=== PATIENT | female | born 1955 | race Caucasian/White ===

== ENCOUNTER 2018-03-11 12:57 | Inpatient (IN) ==
[2018-03-11] MEDS ORDERED: Clindamycin 900 MG/50 ML 900 MG/50 ML IV.SOLN IVPB ONE (13:21)
[2018-03-11] MEDS ORDERED: Ringers Solution, Lactated 1,000 ML IVC SCH (13:30)
--- NOTE | 2018-03-11 13:55 | History & Physical Report ---
Date of Encounter: 03/11/18 Time of Encounter: 13:54 24 Hour HP Update - Instructions Instructions: If the History and Physical is less than 30 days old and was completed prior to A.M. admission and or procedure and has NOT been updated on calendar day of procedure please complete this update prior to performing procedure. - Update Patient reports changes in Medical Condition: No Changes in examination, assessment, or condition: No Changes in Medication: No Preop tests/diagnostics Reviewed: Yes Surgery Remains Indicated: Yes Consent for Planned Operative Procedure(s) Verified: Yes - Pre-Operative Checklist Preoperative Checklist Indicated: No Prophylactic Antibiotic Ordered: Yes Is VTE Prophylaxis Indicated?: Yes
--- NOTE | 2018-03-11 13:58 | Anesthesia Evaluation PreOp ---
Date of Encounter: 03/11/18 Time of Encounter: 13:50 - Past History Planned Operation: R hip arthroplasty Cardiac History: HTN, Hyperlipidemia Pulmonary History: Denies Any Significant HX [employer] History: Denies Any Significant HX Other Medical History: Thyroid, Other (obesity) Anesthesia History: No Prior Anesthetic Complications, Past Anesthesia Alcohol Use: none Drug use: none Medications and Allergies Acetaminophen [Tylenol] 1,000 mg PO TID PRN 08/26/17 [History] Amlodipine Besylate 10 mg PO DAILY 08/26/17 [History] Candesartan Cilexetil [Atacand] 32 mg PO DAILY 08/26/17 [History] Cetirizine HCl [24Hour Allergy] 10 mg PO DAILY 08/26/17 [History] Clindamycin [Cleocin] 150 mg PO Q6HR #14 capsule 08/26/17 [Rx] Duloxetine HCl [Cymbalta] 60 mg PO DAILY 08/26/17 [History] Ibuprofen [Motrin] 600 mg PO Q8HR #20 tab 08/26/17 [Rx] Levothyroxine [Synthroid] 50 mcg PO 0630 08/26/17 [History] Montelukast [Singulair] 10 mg PO HS 08/26/17 [History] OxyCODONE Immed Rel [Roxicodone 5 MG] 5 mg PO Q4HR PRN 5 Days #20 tablet 08/26/17 [Rx] Allergy/AdvReac Type Severity Reaction Status Date / Time celecoxib [From Celebrex] Allergy Swelling Unverified 08/26/17 07:44 of Lip/Tongue/Throat Penicillins Allergy Hives Unverified 08/26/17 07:44 prednisone Allergy Swelling Unverified 08/26/17 07:44 of Lip/Tongue/Throat - Meds/Allergy Pre-op Review Medications Reviewed: Yes Allergies Reviewed: Yes Beta Blockers on Current Med List: No Anesthesia Results - Labs Laboratory Tests 02/23/18 02/23/18 02/23/18 12:00 12:00 12:00 WBC 8.5 Hgb 13.3 Hct 39.8 Plt Count 303 PT 11.9 INR 1.1 APTT 33.5 Sodium 135 L Potassium 3.7 Chloride 100 Carbon Dioxide 24 BUN 13 Creatinine 0.60 - Imaging EKG: report reviewed (sinus rhythm, old ant. infarct) Anesthesia Exam Selected Entries 03/11/18 13:14 Temperature 98.6 F Respiratory Rate 18 Blood Pressure 159/91 O2 Sat by Pulse Oximetry 94 Weight: 95 kg BMI 37 NPO (# of Hours): over 8 hours - HEENT Pupil (Motor): Pupils equal Teeth: Edentulous Oral Opening: Greater than 3 - Cardiac Rhythm: Regular (tachycardic) Murmur: None - Pulmonary Breath Sounds: bilateral Clear Respiratory Effort: Symmetrical Anesthesia Assess/Plan ASA Score: 2 Level of consciousness: Cooperative Anesthetic Plan: General, Spinal Monitoring Plan: Standard Monitors Recovery Plan: PACU (Discussed SAB for post operative pain relief. Patient had total shoulder with interscalene nerve block so is familiar with the concept. Discussed risks and benefits. Agreed to proceed.)
[2018-03-11] MEDS ORDERED: Acetaminophen IV 1,000 MG/100 ML INFUS..BTL IVPB ONE (14:01)
[2018-03-11] MEDS ORDERED: Ethanol\\Acetic Acid\\Na Ace\\Ben 1,000 ML IRRIG.SOLN IR ONE (14:18)
[2018-03-11] MEDS ORDERED: *HR* Midazolam HCl 2 MG/2 ML VIAL ONE (14:23)
[2018-03-11] MEDS ORDERED: *HR* Propofol 200 MG/20 ML VIAL IVP ONE (14:23)
[2018-03-11] MEDS ORDERED: *HR* FentaNYL (PF) 100 MCG/2 ML VIAL ONE (14:23)
[2018-03-11] MEDS ORDERED: Acetaminophen IV 1,000 MG/100 ML INFUS..BTL ONE (14:26)
[2018-03-11] MEDS ORDERED: *HR* Morphine Sulfate/PF 10 MG/10 ML AMPUL ONE (14:26)
[2018-03-11] MEDS ORDERED: Propofol 500 MG/50 ML INFUS..BTL ONE (15:08)
[2018-03-11] MEDS ORDERED: Ondansetron 4 MG/2 ML VIAL ONE ×2 (15:24→15:25)
[2018-03-11] MEDS ORDERED: Dexamethasone 4 MG/ML VIAL ONE (15:25)
[2018-03-11] MEDS ORDERED: *HR* PHENYLEPHRINE 1,000 MCG/10 ML SYRINGE IVP ONE ×3 (15:29→16:12)
[2018-03-11] MEDS ORDERED: Tranexamic Acid 1,000 MG/10 ML VIAL ONE (15:31)
--- NOTE | 2018-03-11 15:55 | Anesthesia Procedures ---
Date of Encounter: 03/11/18 Time of Encounter: 15:00 Procedures: Anesthesia - Epidural/Spinal Patient ID/Chart reviewed: Yes Patient examined: Yes Consent Obtained: Yes Supplemental Oxygen: Nasal Cannula Supplemental Oxygen Rate (L/min): 2 Sedation: Versed (mg): 2 Sedation: Fentanyl (mcg): 100 Site Prep: Aseptic Technique, Sterile prep and drape, 0.5% Chlorhexidine/Alcohol Patient position: upright Local Anesthetic: other (lidocaine 2%) Amount of Local Anesthetic used: 3 Interspace Used: L2-L3 Blood: No CSF: Yes Paresthesia: No Spinal Needle Gauge: 22 ([id number]) Spinal Dose: 2mL 0.5% bupivacaine (PF), 200mcg duramorph Procedure: after +csf, spinal dosed, needle removed, patient assisted into supine position. Vitals + FHT's: Vital Signs/O2 Sat/Glucose, Most Recent Temp Pulse Resp BP Pulse Ox 98.6 F 111 16 149/75 99 03/11/18 13:14 03/11/18 15:11 03/11/18 15:11 03/11/18 15:11 03/11/18 15:11
[2018-03-11] MEDS ORDERED: *HR* HYDROmorphone 2 MG/ML SYRINGE IVP PRN (16:03)
[2018-03-11] MEDS ORDERED: *HR* OxyCODONE Immed Rel 5 MG TABLET PO PRN ×2 (16:03→17:28)
[2018-03-11] MEDS ORDERED: *HR* Promethazine 25 MG/ML VIAL IVP PRN (16:03)
--- NOTE | 2018-03-11 16:40 | Orthopedic Operative Note ---
Date of procedure: 03/11/18 Pre-op diagnosis: Right hip arthritis Post-op diagnosis: same Procedure: Procedure: right Total Hip Replacment robotic-assisted Estimated blood loss: 200 cc Hardware: Metal and polyethylene replacement. Carmita DM Cup: 52 cup Femoral size 7 stem Head: 8 head with Justina Procedural Notes: Grade 4 arthritic changes femoral head acetabular socket, procedure performed with robotic assistance. 16 mm short operative versus nonoperative is based on preoperative CT scan Operative procedure: The patient was brought to the operating room and placed on the operating room table. After general anesthesia was administered the patient was placed in the lateral decubitus position with the operative leg up. All pressure points were padded appropriately and the head was stabilized in the neutral position. The operative extremity was prepped and draped in the sterile surgical fashion patient received IV antibiotic prior to skin incision. 3 Steinmann pins were placed in the iliac crest 3 cm proximal to the anterior superior iliac spine this was for the robotic-assisted sensor. This was done through a small 2 cm incision. A standard posterior approach is made to the operative hip, the incision was made through the skin and subcutaneous tissue hemostasis was obtained with Bovie cautery. Using careful sharp dissection the fascia was identified and incised exposing the external rotators. The greater trochanter was marked, and length was measured at this time utilizing robotic assistance. The external rotators were released off the greater trochanter and tagged with #2 FiberWire suture. The capsule was T'd open and the hip was brought into internal rotation. Patient noted to have grade 4 arthritic changes femoral head. The femoral neck cut was made at the appropriate level roughly 15 mm proximal to the lesser trochanter aced on preoperative templating. An anterior capsulotomy was performed for the anterior retractor. Soft tissues removed from the acetabulum. Patient noted to have grade 4 arthritic changes acetabulum. The acetabulum reference point was confirmed. The acetabulum was then mapped with robotic assistance. Based on the preoperative plan the acetabulum was reamed in one step with a 51 reamer. The 5 2 acetabulum was impacted with robotic assistance and 44 degrees of abduction and 15 degrees of anteversion. The hip was brought back in to internal rotation and prepared with the box tender followed by the canal finder followed by the reaming process to a size 7/8 broaching process in 20 degrees anteversion. It was broached up to the appropriate size 7 Trial reduction revealed leg lengths close to normal. The femoral implant was impacted in place in 20 degrees of anteversion. Trial reduction found the hip to be stable with 8 head and Justina. The trials were removed and the real implants were impacted in place. The hip was reduced, patient had robotic confirmed leg length of 2 mm longer than the contralateral side. The hip had excellent stability with forward flexion to 90 degrees adduction of 30 degrees and internal rotation of 60 degrees. The hip had no shuck. The hip sat with an antibacterial solution. It was irrigated out with 2 L of pulse irrigation. The Steinmann pins were removed. The deep tissue was irrigated and closed deep with #1 PDS suture superficially with 0 PDS suture and skin was closed with Dermabond and zip tie. The patient was placed in a sterile dressing and abduction pillow. The patient was extubated and transferred to the recovery room in stable condition. Anesthesia: YAS Surgeon: Vishnu Yip Was there an corporate administrative assistant present: No Estimated blood loss (cc): 200 Condition: stable Disposition: PACU
[2018-03-11 17:05] LABS: Hematocrit 36.2 % (35.3-44.9); Hemoglobin 11.7 g/dL (11.5-15.4)
--- NOTE | 2018-03-11 17:16 | Anesthesia Evaluation Post Op ---
Date of Encounter: 03/11/18 Time of Encounter: 17:14 - Vital Signs Vital Signs: Vital Signs/O2 Sat, Most Current Temp Pulse Resp BP Pulse Ox 97.2 F L 68 18 113/66 95 03/11/18 17:07 03/11/18 17:07 03/11/18 17:07 03/11/18 17:07 03/11/18 17:07 - Lungs Lungs: Clear Ascult./Percussion - Airway Airway: Non-obstructed - Cardiovascular Regular Rate - Mental Status Mental Status: Alert & Oriented, Answers Appropriately - Pain Pain Scale: 0 Pain Scale used: Numeric (1 - 10) - Nausea Vomiting Nausea Vomiting: Not Present - Hydration Hydration: Tolerates oral liquids - Discharge PostOp Status: Transfer Patient to floor
[2018-03-11] MEDS ORDERED: Naloxone 0.4 MG/ML INJ IVP PRN (17:28)
[2018-03-11] MEDS ORDERED: Clindamycin 900 MG/50 ML 900 MG/50 ML IV.SOLN IVPB SCH (17:28)
[2018-03-11] MEDS ORDERED: traMADol 50 MG TABLET PO PRN (17:28)
[2018-03-11] MEDS ORDERED: Ondansetron 4 MG/2 ML VIAL IVP PRN (17:28)
[2018-03-11] MEDS ORDERED: Temazepam 15 MG CAPSULE PO PRN (17:28)
[2018-03-11] MEDS ORDERED: Sennosides 8.6 MG TABLET PO PRN (17:28)
[2018-03-11] MEDS ORDERED: MOM Conc 10 ML UD.LIQ PO PRN (17:28)
[2018-03-11] MEDS ORDERED: *HR* Enoxaparin 30 MG/0.3 ML SYRINGE SQ SCH (18:00)
[2018-03-11] MEDS: *HR* Enoxaparin 30 MG/0.3 ML SYRINGE SQ SCH (20:31)
[2018-03-11] MEDS: Ascorbic Acid 500 MG TABLET PO SCH (20:32)
[2018-03-11] MEDS: Ibuprofen 800 MG TABLET PO SCH (20:32)
[2018-03-11] MEDS ORDERED: Ibuprofen 200 MG TABLET PO SCH (21:00)
[2018-03-11] MEDS: Clindamycin 900 MG/50 ML 900 MG/50 ML IV.SOLN IVPB SCH (22:25)
[2018-03-12] MEDS: Ringers Solution, Lactated 1,000 ML IVC SCH ×2 (02:26→17:33)
[2018-03-12] MEDS: *HR* OxyCODONE/APAP 5/325 TABLET PO PRN ×3 (02:26→20:11)
[2018-03-12] MEDS: Clindamycin 900 MG/50 ML 900 MG/50 ML IV.SOLN IVPB SCH (05:20)
[2018-03-12] MEDS: *HR* Enoxaparin 30 MG/0.3 ML SYRINGE SQ SCH ×2 (05:21→17:33)
[2018-03-12 06:09] LABS: Hematocrit 37.1 % (35.3-44.9); Hemoglobin 11.7 g/dL (11.5-15.4)
[2018-03-12 06:35] LABS: Calcium 9.7 mg/dL (8.6-10.3); Potassium 4.5 mEq/L (3.5-5.1)
--- NOTE | 2018-03-12 06:46 | Orthopedics Progress Note ---
Date of Encounter: 03/12/18 Time of Encounter: 06:46 Subjective Interval history: Patient was seen this morning doing well without complaints. Afebrile vital signs stable. Operative extremity: Neurovascularly intact Dressing clean dry and intact Calves nontender Assessment and plan: Continue with postoperative care Hematocrit 37 Objective Vital signs: Vital Signs Temp Pulse Resp BP Pulse Ox 03/12/18 02:13 97.8 F 98 15 145/78 94 03/11/18 22:42 97.8 F 98 12 132/84 92 03/11/18 20:21 98.6 F 100 16 108/74 94 03/11/18 19:00 97.8 F 100 16 129/80 93 03/11/18 18:30 98.4 F 94 16 129/81 98 03/11/18 18:10 97.9 F 92 18 126/78 97 03/11/18 17:30 98.4 F 97 16 98/58 97 03/11/18 17:17 97.2 F L 78 14 120/71 95 03/11/18 17:07 97.2 F L 68 18 113/66 95 03/11/18 16:57 73 18 103/59 95 03/11/18 16:47 69 18 93/69 95 03/11/18 16:37 97.4 F L 69 16 99/54 96 03/11/18 15:11 111 16 149/75 99 03/11/18 15:03 112 18 163/99 96 03/11/18 14:49 111 18 181/94 96 03/11/18 13:14 98.6 F 111 18 159/91 94 Intake and Output 03/11/18 03/11/18 03/12/18 15:59 23:59 07:59 Intake Total 50 / 50 50 / 50 800 / 800 Output Total 200 / 200 110 / 110 Balance 50 / 50 -150 / -150 690 / 690 Intake: IV Fluids 50 / 50 50 / 50 Cleocin Premix 900 MG/50 ML 900 50 / 50 50 / 50 mg In 50 ml @ 50 mls/hr IVPB Q8H [facility] Rx#:[id number] Oral 800 / 800 Output: Urine 110 / 110 Estimated Blood Loss 200 / 200 Other: # Voids 1 1 Weight 95.708 kg 105.2 kg - Labs CBC & BMP: 03/12/18 05:46 03/12/18 05:46 Labs: Abnormal lab results Sodium 135 mEq/L (136-145) L 03/12/18 05:46 Est GFR (Non-Af Amer) 49 (> 60) L 03/12/18 05:46 Glucose 256 mg/dL (70-105) H 03/12/18 05:46 Consult Discharge Plan - Plan Referrals: Ghulam Hernandez DO [Primary Care Provider] -
[2018-03-12] MEDS: amLODIPine 5 MG TABLET PO SCH (08:01)
[2018-03-12] MEDS: Loratadine 10 MG TABLET PO SCH (08:01)
[2018-03-12] MEDS: Ibuprofen 800 MG TABLET PO SCH ×2 (08:03→17:32)
[2018-03-12] MEDS: hydroCHLOROthiazide 25 MG TABLET PO SCH (08:03)
[2018-03-12] MEDS: Multivit/Ca/Min/Fe/FA 1 TAB TABLET PO SCH (08:04)
[2018-03-12] MEDS: Ascorbic Acid 500 MG TABLET PO SCH ×2 (08:04→17:32)
--- NOTE | 2018-03-12 10:52 | Discharge Summary ---
Orders not resulted at time of discharge: Pending orders 03/13/18 04:00 Basic Metabolic Panel AM 0400 Hemoglobin and Hematocrit [HEME] AM 0400 Date of Encounter: 03/13/18 Time of Encounter: 09:58 - Discharge Diagnosis (1) Status post total hip replacement, right Priority: Primary Status: Acute Comments: Opsite dressing, leave intact until first post-operative visit. If dressing becomes >50% saturated, contact office, remove dressing and place appropriate dressing in its place. Do not allow for dressing to get wet. Zipline/Flatgap in place, plan to remove at post-operative day #14-16. Total Joint Precautions x 6 weeks Apply cold therapy wrap 3-6x/day for 20 minutes at a time. Encourage ambulation throughout the day Use Incentive spirometer 10x/hour. Elevate affected extremity above heart as tolerated. Brace: Wear hip abductor brace at night x 6 weeks. (2) Arthritis of right hip Priority: Primary Status: Acute (3) Obesity Priority: Secondary Status: Chronic Qualifiers: Obesity type: due to excess calories Obesity classification: adult class 1 (BMI 30 - 34.9) Serious obesity comorbidity presence: without serious comorbidity Body mass index: BMI 34.0-34.9 Qualified Code(s): E66.09 - Other obesity due to excess calories; Z68.34 - Body mass index (BMI) 34.0-34.9, adult (4) HTN (hypertension) Priority: Secondary Status: Chronic Qualifiers: Hypertension type: essential hypertension Qualified Code(s): I10 - Essential (primary) hypertension (5) HLD (hyperlipidemia) Priority: Secondary Status: Chronic Qualifiers: Hyperlipidemia type: mixed hyperlipidemia Qualified Code(s): E78.2 - Mixed hyperlipidemia (6) Hypothyroid Priority: Secondary Status: Chronic Qualifiers: Hypothyroidism type: unspecified Qualified Code(s): E03.9 - Hypothyroidism, unspecified - Hospital Course Hospital course: Ms. Lauren is a 63 year old female, status post Total Hip replacement She was seen 03/13 by tammie Eldridge for D/C. Per his note: S: Patient is seen today and has no complaints. O: Afebrile and vital signs are stable Operative extremity dressing is clean, dry, and intact. Neurovascularly intact distally A: Post right hip arthroplasty P: Resume postoperative care Discharged today Discharged on 03/13 with Home Health Laboratory Results - last 72 hr 03/13/18 03/13/18 05:50 05:50 Hgb 11.1 L Hct 33.7 L Sodium 133 L Potassium 3.5 Chloride 100 Carbon Dioxide 25 BUN 17 Creatinine 0.69 Est GFR ( Amer) > 60 Est GFR (Non-Af Amer) > 60 BUN/Creatinine Ratio 25 Glucose 271 H Calculated Osmolality 287 Calcium 9.6 Vital Signs (72 hours) 03/12/18 10:49 03/12/18 20:06 03/12/18 21:23 Temperature 98.6 F 98.0 F Pulse Rate 98 96 101 Respiratory Rate 18 16 Blood Pressure 143/71 172/74 130/76 O2 Sat by Pulse Oximetry 93 92 03/12/18 23:36 03/13/18 03:40 03/13/18 07:05 Temperature 98.5 F 98.2 F 98.4 F Pulse Rate 102 96 98 Respiratory Rate 16 16 16 Blood Pressure 148/79 135/74 141/81 O2 Sat by Pulse Oximetry 91 91 98 03/13/18 11:23 Temperature 98.4 F Pulse Rate 98 Respiratory Rate 15 Blood Pressure 113/71 O2 Sat by Pulse Oximetry 95 - Time Spent with Patient Total time spent providing and/or coordinating discharge services: - Discharge Medications Prescriptions: OxyCODONE Immed Rel [Roxicodone 5 MG] 5 mg PO Q6HR PRN 5 Days #20 tablet PRN Reason: Pain Aspirin Enteric Coated [Aspirin EC] 325 mg PO BID #20 tablet. Home Medications: Cetirizine HCl [24Hour Allergy] 10 mg PO DAILY 08/26/17 [History] Duloxetine HCl [Cymbalta] 60 mg PO HS 08/26/17 [History] Montelukast [Singulair] 10 mg PO DAILY 08/26/17 [History] Amlodipine Besylate 10 mg PO DAILY 03/11/18 [History] Aspirin Enteric Coated [Aspirin EC] 325 mg PO BID #20 tablet. 03/11/18 [Rx] Candesartan/Hydrochlorothiazid [Atacand Hct 32-12.5 mg Tab] 1 each PO DAILY 03/11/18 [History] Diphenhydramine HCl [Diphen] 25 mg PO BID 03/11/18 [History] Ibuprofen [Ibu-200] 200 mg PO BID 03/11/18 [History] Ibuprofen [Motrin] 600 mg PO BID 03/11/18 [History] OxyCODONE Immed Rel [Roxicodone 5 MG] 5 mg PO Q6HR PRN 5 Days #20 tablet 03/11/18 [Rx] Aspirin Enteric Coated [Aspirin EC] 325 mg PO BID #20 tablet. 03/12/18 [Rx] OxyCODONE Immed Rel [Roxicodone 5 MG] 5 mg PO Q6HR PRN 5 Days #20 tablet 03/12/18 [Rx] Allergies/Adverse Reactions: Allergy/AdvReac Type Severity Reaction Status Date / Time celecoxib [From Celebrex] Allergy Swelling Verified 03/11/18 20:23 of Lip/Tongue/Throat Penicillins Allergy Hives Verified 03/11/18 20:23 prednisone Allergy Swelling Verified 03/11/18 20:23 of Lip/Tongue/Throat Date of admission: 03/11/18 18:12 Primary care physician: Ghulam Hernandez DO Consults: 03/11/18 17:28 Consult to Nurse Navigator [CONS] Routine Comment: ortho navigator Consult to Occupational Therapy [CONS] Routine Comment: Evaluate, develop and implement POC Reason for Consult: total hip replacement Does patient have active BEDREST order?: No Is patient medically & hemodynamically stable?: Yes Consult to Physical Therapy [CONS] Routine Comment: Evaluate, develop and implement POC Reason for Consult: total hip replacement Does patient have active BEDREST order?: No Is patient medically & hemodynamically stable?: Yes Consult to Manager Intelligence [CONS] Routine Reason for Consult: post op joint replacement RT Post Op Consult [CONS] Routine 03/11/18 18:37 Consult to Manager Intelligence [CONS] Routine Reason for Consult: therapy after discharge Anticipated date of discharge: 03/13/18 Labs on day of discharge: Labs from last 24 hours 03/12/18 03/12/18 03/11/18 05:46 05:46 16:50 Hgb 11.7 11.7 Hct 37.1 36.2 Sodium 135 L Potassium 4.5 Chloride 100 Carbon Dioxide 25 BUN 22 Creatinine 1.11 Est GFR ( Amer) 60 Est GFR (Non-Af Amer) 49 L BUN/Creatinine Ratio 20 Glucose 256 H Calculated Osmolality 292 Calcium 9.7 - Impressions ITS Impressions Hip X-Ray 03/11/18 13:58 IMPRESSION: Right hip arthroplasty. Hardware appears intact. Unremarkable postop study. D/ / Stephan Brewer MD / Stephan Brewer MD Interpreting Provider: Stephan Brewer MD - Patient Status Disposition: Home Health Service Condition: Good Functional capacity at discharge: uses cane/walker Overall status at discharge: patient is progressing back to baseline - Discharge Instructions Follow Up With: Ghulam Hernandez DO [Primary Care Provider] - Additional Instructions: Discharge Instructions: Total Hip Replacement Please call [facility] ([phone]), your Primary Care Physician, or report to the Emergency Room if you have any of the following symptoms: Nausea, vomiting, fever greater that 101.5, swelling, chest pain, shortness of breath, increased pain/redness/drainage/odor for your incision site, numbness/tingling, or any other concerning symptoms. ACTIVITY:Weight-bearing as tolerated for 8 weeks with hip dislocation precautions that physical therapy taught you. You may progress as tolerated under the guidance of your physical therapist. You do not need to sleep with a pillow between your legs. You can also seep on the operative side or on your stomach. Incentive Spirometer 10 times an hour. MEDICATIONS: Upon discharge resume your home medications. Take all the medications as prescribed. Take a stool softener if taking narcotic pain medications. Stool softeners are only effective if you drink enough fluids. Drink 6-8 glass of water or fluids a day, unless this is not allowed for another health problem. Despite using stool softeners, if you haven't had a bowel movement in 3 days, please switch to a gentle laxative. Gentle laxatives are sold over the counter. You should have a bowel movement within 24 hours, if not call the office. You will be discharged from the hospital with a prescription for pain medication. You are encouraged to decrease the use of narcotic pain medication as tolerated. Should you require a refill, please call the office. [facility] prescribes narcotic pain medication for only 4-6 weeks after surgery. If you require pain medication beyond this time period, you may be referred to your Primary Care Physician or to the Pain Clinic for further evaluation. Plan ahead for refills on pain medication as many narcotics either need to be pi cked up at the office or mailed. It is best to call 48-72 hours in advance of needing a prescription refill so you don't run out of medication. To help control the post-operative pain, you may take NSAIDs (Aleve,Advil, Motrin, ibuprofen, naprosyn) or Tylenol as prescribed on the bottle in addition to the pain medication. ANTICOAGULATION (blood thinners): Continue your Aspirin, Lovenox or Coumadin as prescribed to help prevent a blood clot in the leg or in the lungs. As long as your incision remains dry and you tolerate the NSAIDs (Aleve, Advil, Motrin, Ibuprofen, Naprosyn), it is OK to use the NSAIDS while you are taking your anticoagulation medication. Should your incision start to drain, stop the NSAID and contact our office. Common symptoms of blood clot in the legs include: localized pain, swelling, calf tenderness, redness or discoloration of the skin. Blood clot in the lung symptoms include: shortness of breath, rapid pulse, sweating, and chest pain that worsens with deep breathing, coughing up blood, lightheadedness, feelings of anxiety. If you experience any of these symptoms notify your physician immediately, go to the emergency room, or if having trouble breathing, call 911. WOUND CARE: Leave the dressing on for 7 to 10days. You may change the dressing if it is saturated greater than 50%. Do not get the dressing wet at anytime. Wash your hands with antibacterial soap, rinse and dry prior to any wound care. If you have anya the visiting nurse or rehab facility can remove the stapes 10-14 days after surgery and place steri-strips across the wound. Leave the steri-strips in place until they fall off on their own. You may let water from the shower run on top of the steri-strips. If you do not have a visiting nurse or rehab facility, you will need to return to the office at 10-14 days for the anya to be removed. If you have itching or redness around the dressing call the office. FOLLOW-UP: Please follow up with your surgeon in the orthopedic clinic in 6 weeks from the day of surgery. If you have anya that need to be removed, you will need to come back to the office in 10-14 days from the day of surgery.
--- NOTE | 2018-03-12 10:55 | Physician Discharge Referral ---
Home Health/Hosp Referral Info Transfer to: Home Health Attending Provider: Provider in Charge Post Discharge: PCP - Diagnosis (1) Status post total hip replacement, right Priority: Primary Status: Acute (2) Arthritis of right hip Priority: Primary Status: Acute (3) Obesity Priority: Secondary Status: Chronic (4) HTN (hypertension) Priority: Secondary Status: Chronic (5) HLD (hyperlipidemia) Priority: Secondary Status: Chronic (6) Hypothyroid Priority: Secondary Status: Chronic - Respiratory Orders None Smoking Cessation: Smoking cessation has been advised. For more information, call the [place] Tobacco Quit Line at 0-561-YHIB-NOW. - Diet/Nutrition Diet/Nutrition Orders: Regular - Activity Activity Orders: Ambulate, Walker - Services Needed Following services are medically necessary services: Nursing, Home Health Aide, Physical Therapy, Occupational Therapy Home Care Orders: Opsite dressing, leave intact until first post-operative visit. If dressing becomes >50% saturated, contact office, remove dressing and place appropriate dressing in its place. Do not allow for dressing to get wet. Zipline/[place] in place, plan to remove at post-operative day #14-16. Total Joint Precautions x 6 weeks Apply cold therapy wrap 3-6x/day for 20 minutes at a time. Encourage ambulation throughout the day Use Incentive spirometer 10x/hour. Elevate affected extremity above heart as tolerated. Brace: Wear hip abductor brace at night x 6 weeks. - Transfer Medications Prescriptions: OxyCODONE Immed Rel [Roxicodone 5 MG] 5 mg PO Q6HR PRN 5 Days #20 tablet PRN Reason: Pain Aspirin Enteric Coated [Aspirin EC] 325 mg PO BID #20 tablet. Home Medications: Cetirizine HCl [24Hour Allergy] 10 mg PO DAILY 08/26/17 [History] Duloxetine HCl [Cymbalta] 60 mg PO HS 08/26/17 [History] Montelukast [Singulair] 10 mg PO DAILY 08/26/17 [History] Amlodipine Besylate 10 mg PO DAILY 03/11/18 [History] Aspirin Enteric Coated [Aspirin EC] 325 mg PO BID #20 tablet. 03/11/18 [Rx] Candesartan/Hydrochlorothiazid [Atacand Hct 32-12.5 mg Tab] 1 each PO DAILY 03/11/18 [History] Diphenhydramine HCl [Diphen] 25 mg PO BID 03/11/18 [History] Ibuprofen [Ibu-200] 200 mg PO BID 03/11/18 [History] Ibuprofen [Motrin] 600 mg PO BID 03/11/18 [History] OxyCODONE Immed Rel [Roxicodone 5 MG] 5 mg PO Q6HR PRN 5 Days #20 tablet 03/11/18 [Rx] Aspirin Enteric Coated [Aspirin EC] 325 mg PO BID #20 tablet. 03/12/18 [Rx] OxyCODONE Immed Rel [Roxicodone 5 MG] 5 mg PO Q6HR PRN 5 Days #20 tablet 03/12/18 [Rx] Allergies/Adverse Reactions: Allergy/AdvReac Type Severity Reaction Status Date / Time celecoxib [From Celebrex] Allergy Swelling Verified 03/11/18 20:23 of Lip/Tongue/Throat Penicillins Allergy Hives Verified 03/11/18 20:23 prednisone Allergy Swelling Verified 03/11/18 20:23 of Lip/Tongue/Throat Certification: Further, I certify that my clinical findings support that this patient is homeb ound (i.e. absences from home require considerable and taxing effort and are for medical reasons or latter day services or infrequently or short duration when for other reasons) because: Homebound Reason: Post-surgery restriction and or conditions limit ability to leave home Attestation: My signature below is to certify that this patient is under my care and that I, or nurse practitioner, or a physician's assistant professor of psychology working with me, has a [id number] encounter with this patient.
[2018-03-13] MEDS: *HR* Enoxaparin 30 MG/0.3 ML SYRINGE SQ SCH (05:52)
[2018-03-13 06:35] LABS: Hematocrit 33.7 % (35.3-44.9); Hemoglobin 11.1 g/dL (11.5-15.4)
[2018-03-13 06:37] LABS: BUN/Creatinine Ratio 25 (6-26); Blood Urea Nitrogen 17 mg/dL (8-23); Calcium 9.6 mg/dL (8.6-10.3); Carbon Dioxide 25 mEq/L (23-29); Chloride 100 mEq/L (98-107); Glucose 271 mg/dL (70-105); Osmolality,Calculated 287 (280-300); Potassium 3.5 mEq/L (3.5-5.1); Sodium 133 mEq/L (136-145); eGFR For Non-African Americans > 60 (> 60)
[2018-03-13] MEDS: hydroCHLOROthiazide 25 MG TABLET PO SCH (08:24)
[2018-03-13] MEDS: *HR* OxyCODONE/APAP 5/325 TABLET PO PRN ×2 (08:24→12:45)
[2018-03-13] MEDS: amLODIPine 5 MG TABLET PO SCH (08:24)
[2018-03-13] MEDS: Loratadine 10 MG TABLET PO SCH (08:25)
[2018-03-13] MEDS: Ascorbic Acid 500 MG TABLET PO SCH (08:25)
[2018-03-13] MEDS: Multivit/Ca/Min/Fe/FA 1 TAB TABLET PO SCH (08:25)
[2018-03-13] MEDS: Ibuprofen 800 MG TABLET PO SCH (08:25)
[2018-03-13 11:24] VITALS: BP 113/71
--- NOTE | 2018-03-13 12:06 | Orthopedics Progress Note ---
Date of Encounter: 03/13/18 Time of Encounter: 12:06 Subjective Interval history: S: Patient is seen today and has no complaints. O: Afebrile and vital signs are stable Operative extremity dressing is clean, dry, and intact. Neurovascularly intact distally A: Post right hip arthroplasty P: Resume postoperative care Discharged today Objective Vital signs: Vital Signs Temp Pulse Resp BP Pulse Ox 03/13/18 11:23 98.4 F 98 15 113/71 95 03/13/18 07:05 98.4 F 98 16 141/81 98 03/13/18 03:40 98.2 F 96 16 135/74 91 03/12/18 23:36 98.5 F 102 16 148/79 91 03/12/18 21:23 101 130/76 03/12/18 20:06 98.0 F 96 16 172/74 92 Intake and Output 03/12/18 03/13/18 03/13/18 23:59 07:59 15:59 Intake Total 240 / 240 Output Total 400 / 400 300 / 300 Balance -400 / -400 -60 / -60 Intake: Oral 240 / 240 Output: Urine 400 / 400 300 / 300 Other: Meal Breakfast Percent of Meal Consumed 80% # Voids 1 1 - Labs CBC & BMP: 03/13/18 05:50 03/13/18 05:50 Labs: Abnormal lab results Hgb 11.1 g/dL (11.5-15.4) L 03/13/18 05:50 Hct 33.7 % (35.3-44.9) L 03/13/18 05:50 Sodium 133 mEq/L (136-145) L 03/13/18 05:50 Glucose 271 mg/dL (70-105) H 03/13/18 05:50 Consult Discharge Plan - Plan Additional Instructions: Discharge Instructions: Total Hip Replacement Please call [facility] ([phone]), your Primary Care Physician, or report to the Emergency Room if you have any of the following symptoms: Nausea, vomiting, fever greater that 101.5, swelling, chest pain, shortness of breath, increased pain/redness/drainage/odor for your incision site, numbness/tingling, or any other concerning symptoms. ACTIVITY:Weight-bearing as tolerated for 8 weeks with hip dislocation precautions that physical therapy taught you. You may progress as tolerated under the guidance of your physical therapist. You do not need to sleep with a pillow between your legs. You can also seep on the operative side or on your stomach. Incentive Spirometer 10 times an hour. MEDICATIONS: Upon discharge resume your home medications. Take all the medications as prescribed. Take a stool softener if taking narcotic pain medications. Stool softeners are only effective if you drink enough fluids. Drink 6-8 glass of water or fluids a day, unless this is not allowed for another health problem. Despite using stool softeners, if you haven't had a bowel movement in 3 days, please switch to a gentle laxative. Gentle laxatives are sold over the counter. You should have a bowel movement within 24 hours, if not call the office. You will be discharged from the hospital with a prescription for pain medication. You are encouraged to decrease the use of narcotic pain medication as tolerated. Should you require a refill, please call the office. [facility] prescribes narcotic pain medication for only 4-6 weeks after surgery. If you require pain medication beyond this time period, you may be referred to your Primary Care Physician or to the Pain Clinic for further evaluation. Plan ahead for refills on pain medication as many narcotics either need to be pi cked up at the office or mailed. It is best to call 48-72 hours in advance of needing a prescription refill so you don't run out of medication. To help control the post-operative pain, you may take NSAIDs (Aleve,Advil, Motrin, ibuprofen, naprosyn) or Tylenol as prescribed on the bottle in addition to the pain medication. ANTICOAGULATION (blood thinners): Continue your Aspirin, Lovenox or Coumadin as prescribed to help prevent a blood clot in the leg or in the lungs. As long as your incision remains dry and you tolerate the NSAIDs (Aleve, Advil, Motrin, Ibuprofen, Naprosyn), it is OK to use the NSAIDS while you are taking your anticoagulation medication. Should your incision start to drain, stop the NSAID and contact our office. Common symptoms of blood clot in the legs include: localized pain, swelling, yaritza f tenderness, redness or discoloration of the skin. Blood clot in the lung symptoms include: shortness of breath, rapid pulse, sweating, and chest pain that worsens with deep breathing, coughing up blood, lightheadedness, feelings of anxiety. If you experience any of these symptoms notify your physician immediately, go to the emergency room, or if having trouble breathing, call 911. WOUND CARE: Leave the dressing on for 7 to 10days. You may change the dressing if it is saturated greater than 50%. Do not get the dressing wet at anytime. Wash your hands with antibacterial soap, rinse and dry prior to any wound care. If you have anya the visiting nurse or rehab facility can remove the stapes 10-14 days after surgery and place steri-strips across the wound. Leave the steri-strips in place until they fall off on their own. You may let water from the shower run on top of the steri-strips. If you do not have a visiting nurse or rehab facility, you will need to return to the office at 10-14 days for the anya to be removed. If you have itching or redness around the dressing call the office. FOLLOW-UP: Please follow up with your surgeon in the orthopedic clinic in 6 weeks from the day of surgery. If you have anya that need to be removed, you will need to come back to the office in 10-14 days from the day of surgery. Referrals: Ghulam Hernandez DO [Primary Care Provider] - Prescriptions: Aspirin Enteric Coated [Aspirin EC] 325 mg PO BID #20 tablet.dr Butts Immed Rel [Roxicodone 5 MG] 5 mg PO Q6HR PRN 5 Days #20 tablet PRN Reason: Pain
== END 2018-03-13 13:20 | disposition home health service (06) | DRG 470 ==
LOC: SAMDAY 12:57 → 3NENU 18:12
PROVIDERS: ADMIT Orthopaedic Surgery; ATTEND Orthopaedic Surgery

== ENCOUNTER 2018-10-13 05:15 | Inpatient (IN) ==
[2018-10-13] MEDS ORDERED: *HR* OxyCODONE/APAP 7.5/325 TABLET PO ONE (06:04)
[2018-10-13] MEDS ORDERED: Ibuprofen 600 MG TABLET PO ONE (06:04)
[2018-10-13] MEDS ORDERED: 0.9 % Sodium Chloride 1,000 ML IVC ONE ×2 (06:37→06:56)
--- NOTE | 2018-10-13 06:56 | Emergency Department Note ---
Disposition Clinical Impression: Hyperglycemia, Joint pain Disposition: Still a Patient Referrals: Ghulam Hernandez DO [Primary Care Provider] - Time of Disposition: 06:56 General Adult HPI - General Chief complaint: ED Extremity Injury, Upper Stated complaint: Leg/Hip/Shoulder Pain, malaise Time Seen by Provider: 10/13/18 05:26 Source: patient, family Limitations: no limitations Nursing Notes Reviewed: Yes Vital Signs Reviewed: Yes - History of Present Illness Pain Scale: 8 - Related Data Home Medications Medication Instructions Recorded Confirmed Cetirizine HCl [24Hour Allergy] 10 mg PO DAILY 08/26/17 10/13/18 Duloxetine HCl [Cymbalta] 60 mg PO HS 08/26/17 10/13/18 Montelukast [Singulair] 10 mg PO DAILY 08/26/17 10/13/18 Amlodipine Besylate 10 mg PO DAILY 03/11/18 10/13/18 Candesartan/Hydrochlorothiazid 1 each PO DAILY 03/11/18 10/13/18 [Atacand Hct 32-12.5 mg Tab] Ibuprofen [Motrin] 400 mg PO BID PRN 03/11/18 10/13/18 metFORMIN [Glucophage] 500 mg PO BIDWM 10/13/18 10/13/18 Allergies Allergy/AdvReac Type Severity Reaction Status Date / Time celecoxib [From Celebrex] Allergy Swelling Verified 10/13/18 05:47 of Lip/Tongue/Throat Penicillins Allergy Hives Verified 10/13/18 05:47 prednisone Allergy Swelling Verified 10/13/18 05:47 of Lip/Tongue/Throat Past Medical History - Past Medical History Medical history: Reports: cancer, diabetes, thyroid disease Surgical history: Reports: hysterectomy Psychiatric history: Reports: no psych history - Social History Smoking Status: Never smoker Smokeless Tobacco Status: No Alcohol use: Reports: none Drug use: Reports: none Physical Exam - General Limitations: no limitations General appearance: alert Course Vital Signs Temperature 98.2 F 10/13/18 05:20 Pulse Rate 124 10/13/18 05:20 Respiratory Rate 20 10/13/18 05:20 Blood Pressure 140/82 10/13/18 05:20 O2 Sat by Pulse Oximetry 98 10/13/18 05:20 Temperature 98.2 F 10/13/18 05:55 Pulse Rate 119 10/13/18 05:55 Respiratory Rate 20 10/13/18 05:55 Blood Pressure 140/82 10/13/18 05:55 O2 Sat by Pulse Oximetry 97 10/13/18 05:55 Oxygen Delivery Oxygen Delivery Room Air Attestation Statement - Attestation Attestation: I have seen this patient with the resident physician, I have personally evaluated this patient. I had reviewed the chart and document dictation by the resident physician and aM in agreement with the information documented by the resident physician. Please see documentation by the resident physician for complete chart including past medical history, family medical history, review of systems, current history and physical and laboratory and imaging studies. I was present for all procedures, provided direct supervision for all procedures, was present for the entirety of all procedures and provided direct guidance during the procedures. Please see documentation by the resident physician for any procedures performed. I have reviewed all interpretations of EKGs, and reviewed all EKGs performed on patient's as well. I have also reviewed reports of imaging as provided by radiology. Patient presented emergency department with her , for acute on chronic joint pains. She has been seen multiple times over last several months by her orthopedic surgeon for joint pain, and multiple different locations, she has had prior shoulder replacements her shoulder replacement side hurts but are all other shoulder hurts more now. She also has chronic hip pain which is worse. She has knee pain. She also states that she just could not sleep last night. The states that they were recently seen by their primary care doctor within the last 1-2 weeks for new onset diabetes, she was started on metformin but reports that her blood sugar was 600 in the office but reports that her blood sugar was 250 the last she checked it yesterday. The patient has been taking metformin. She states that she also just feels weak and rundown. The endorses that she has been urinating constantly, the patient and cannot tell me exactly when this started but he thinks it is worse today. He came in with her because she was having so much pain that she could not even get up and go to the bathroom without worsening pain in her joints. No reported fevers but she states she had chills all day yesterday. She denies headache or neck pain. She has chronic dry mouth which is no different. She denies cough sputum production shortness of breath or abdominal pain. She denies any rashes. The notes that she had a small raised red area on her right anterior thigh which she was treated with Neosporin and it seems to be better. On physical examination she is alert awake and talking, she definitely has dry mouth, with tachycardia and sticky appearing oral pharyngeal membranes. Cranial nerves are otherwise intact. Normal strength and sensation in all 4 extremities. She does have pain with range of motion of her bilateral shoulders but no warmth erythema swelling or obvious joint effusion over all major joints of bilateral upper and lower extremities. She also complains of some pain with palpation of the bilateral hips, but again I cannot localize any clinical abnormality. On the right anterior thigh there is an area that appeared to have been a plugged tear follicle, now appears to be a slightly scabbed over area that and probably previously drained, there is no redness no warmth or induration. There is some dry skin associated with this. Cardiovascular tachycardic, regular rhythm, no murmurs rubs or gallops. Abdomen soft and nontender. Lungs are clear. A fingerstick was checked and was 519, she was noted to be tachycardic and EKG was performed which showed sinus tachycardia heart rate of 111 no evidence of acute ischemic dysrhythmia hyperkalemia or abnormal intervals, compared to prior EKG from 04/17/2009 there is no acute change apart from increased rate. Secondary to her reporting malaise and urinary frequency and with a blood sugar 519, laboratory studies were ordered. She had an IV placed she was given a liter of IV fluids. She was ordered oral pain medication for her joint pains. At the time of this dictation, workup including all laboratory studies apart from the fingerstick was pending, I have asked that my colleague follow-up on all laboratory studies, if this is isolated hyperglycemia, consider hydration and discharged home with follow-up, however if there is any concerning findings on laboratory studies consideration of admission at that time. The patient signed out at 0700.
[2018-10-13 07:31] LABS: VBG HCO3 11 mEq/L (21-27); VBG PCO2 22 mmHg (41-51); VBG PH 7.32 pH Units (7.32-7.42); VBG PO2 125 mmHg (25-50)
[2018-10-13 07:45] LABS: Hematocrit 37.3 % (35.3-44.9); Hemoglobin 12.2 g/dL (11.5-15.4); Mean Corpuscular HGB Conc 32.7 g/dL (31.6-35.5); Mean Corpuscular Hemoglobin 28.7 pg (28.0-33.3); Mean Corpuscular Volume 87.8 fL (83.0-100.0); Mean Platelet Volume 11.1 fL (9.4-12.4); Platelet Count 175 K/mcL (140-400); Red Blood Count 4.25 M/mcL (3.82-4.97); Red Cell Distribution Width 14.9 % (11.5-14.5); White Blood Count 10.1 K/mcL (4.3-11.1)
--- NOTE | 2018-10-13 07:51 | Emergency Department Note ---
Disposition Clinical Impression: Diabetic ketoacidosis Joint pain Qualifiers: Joint pain location: unspecified Qualified Code(s): M25.50 - Pain in unspecified joint Disposition: Admitted As Inpatient Condition: Fair Time of Disposition: 07:10 General Adult HPI - General Chief complaint: ED Extremity Injury, Upper Stated complaint: Leg/Hip/Shoulder Pain, malaise Time Seen by Provider: 10/13/18 05:26 Source: patient, family () Mode of arrival: private vehicle Limitations: no limitations Nursing Notes Reviewed: Yes Vital Signs Reviewed: Yes - History of Present Illness HPI Narrative: 63-year-old female recent diagnosis of diabetes presents emergency department with multiple complaints. States over the past several months up to 3 months she has been having worsening pain to bilateral shoulders and hip. Denies any new injury or trauma. She has a history of right shoulder replacement over a ye ar ago. Dr. Yip is her orthopedic surgeon and states she is been evaluated by him in the past 3 months but he did not prescribe her any pain medication. She then went to her primary care provider who also did not area since then she has been taking ibuprofen and Tylenol with minimal relief. She denies any chest pain or shortness of breath. She recently was started on metformin. Unsure what her blood sugar levels have been running. Denies any fever. Limited range of motion secondary to pain. Pain Scale: 8 - Related Data Home Medications Medication Instructions Recorded Confirmed Cetirizine HCl [24Hour Allergy] 10 mg PO DAILY 08/26/17 10/13/18 Montelukast [Singulair] 10 mg PO DAILY 08/26/17 10/13/18 Candesartan/Hydrochlorothiazid 1 tab PO DAILY 03/11/18 10/13/18 [Atacand Hct 32-12.5 mg Tab] Amlodipine Besylate 10 mg PO DAILY 10/13/18 10/13/18 Previous Rx's Medication Instructions Recorded Alcohol Antiseptic Pads [Alcohol 1 each ACHS #100 med..pad 10/18/18 Pads] Blood-Glucose Meter, Drum-Type 1 each ACHS #1 kit 10/18/18 [Accu-Chek] Cefdinir [Omnicef] 300 mg PO BID 9 Days #18 capsule 10/18/18 Ferrous Sulfate 325 mg PO DAILY@0800 #14 tablet 10/18/18 Insulin DETEMIR [Levemir Flextouch] 35 unit SQ HS #1 pack 10/18/18 Insulin LISPRO [Humalog Jadon 0 unit SQ ACHS #5 ins.pen.hf 10/18/18 Kwikpen] Lactobacillus [Culturelle] 2 each PO DAILY 10 Days #20 10/18/18 cap.sprink Lancets/Blood Glucose Strips [Fora 1 each [facility] #1 combo..pkg 10/18/18 [id number] Strp-Lnct] Pen Needle, Diabetic, Safety 1 each [facility] #100 dis.needle 10/18/18 [Assure Id Pen Needle] Vancomycin Oral Soln [Firvanq] 125 mg PO QID 8 Days #32 udc 10/18/18 Allergies Allergy/AdvReac Type Severity Reaction Status Date / Time celecoxib [From Celebrex] Allergy Swelling Verified 10/13/18 21:17 of Lip/Tongue/Throat Penicillins Allergy Hives Verified 10/13/18 21:17 prednisone Allergy Swelling Verified 10/13/18 21:17 of Lip/Tongue/Throat duloxetine [From Cymbalta] AdvReac Severe Hallucinati Verified 10/15/18 20:30 ng All systems ED: reviewed and negative except as stated. Review of Systems: As Per HPI Constitutional: Denies: fever, chills ENT ED: Denies: congestion Cardiovascular: Denies: chest pain Respiratory: Denies: dyspnea Gastrointestinal: Denies: abdominal pain, nausea, vomiting Musculoskeletal: Reports: as per HPI Integumentary: Denies: rash Past Medical History - Past Medical History Attestation: Yes The following information was validated with the patient. Source: patient Medical history: Reports: cancer, diabetes, thyroid disease Surgical history: Reports: hysterectomy Psychiatric history: Reports: no psych history - Social History Smoking Status: Never smoker Smokeless Tobacco Status: No Alcohol use: Reports: none Drug use: Reports: none Physical Exam - General Limitations: no limitations General appearance: alert, in distress (Uncomfortable secondary to pain) - Head Head exam: atraumatic, normocephalic, normal inspection - Eye Eye exam: Present: normal appearance, EOMI - ENT ENT exam: normal exam, normal oropharynx, mucous membranes moist - Neck Neck exam: Present: normal inspection, full ROM, trachea midline - Chest Chest inspection: Present: normal inspection, symmetric chest wall rise - Respiratory Respiratory exam: Present: normal lung sounds bilaterally. Absent: respiratory distress, wheezes - Cardiovascular Cardiovascular exam: Present: regular rate, normal rhythm, normal heart sounds - Abdominal Exam Abdominal exam: Present: soft, Non-Tender. Absent: tenderness, distention, guarding, rebound, rigidity - Expanded Upper Extremity Exam Shoulder exam: Present: tenderness. Absent: full ROM (Limited secondary to pain), deformity Arm exam: Present: normal inspection, full ROM Elbow exam: Present: normal inspection, full ROM Forearm/Wrist exam: Present: normal inspection, full ROM Hand exam: Present: normal inspection, full ROM Vascular exam: Normal: capillary refill, radial pulse - Expanded Lower Extremity Exam Hip/Pelvis exam: Present: normal inspection, full ROM, tenderness (Right hip), pelvis stable. Absent: shortening Upper leg exam: Present: normal inspection, full ROM Knee exam: Present: normal inspection, full ROM Lower leg exam: Present: normal inspection, full ROM Ankle exam: Present: normal inspection, full ROM Foot/toe exam: Present: normal inspection, full ROM Neurovascular/Tendon exam: Absent: motor deficit, sensory deficit, tendon deficit - Neurological Exam Neurological exam: Present: alert, oriented X3 - Psychiatric Psychiatric exam: Present: normal affect, normal mood - Skin Skin exam: Present: warm, dry, intact, normal color. Absent: rash, cyanosis, diaphoresis Course Course Narrative: Patient presents with acute on chronic pain. Has been taken ibuprofen Tylenol at home without any significant relief. Follows with orthopedic surgery. Requesting pain relief here. Also recently started on metformin and does not know what her blood sugar level is. Will check point of care glucose and control her pain with Percocet and ibuprofen. I reviewed her OARRS without acti ve prescription, last Mar 2018 - Reevaluation(s) Reevaluation #1: Point of care glucose 582. Will proceed with lab workup including serum ketones basic labs. Patient will be signed out to daytime physician Dr. Kearney pending reevaluation and final disposition Vital Signs Temperature 98.2 F 10/13/18 05:20 Pulse Rate 124 10/13/18 05:20 Respiratory Rate 20 10/13/18 05:20 Blood Pressure 140/82 10/13/18 05:20 O2 Sat by Pulse Oximetry 98 10/13/18 05:20 Temperature 98.2 F 10/13/18 05:55 Pulse Rate 119 10/13/18 05:55 Respiratory Rate 20 10/13/18 05:55 Blood Pressure 140/82 10/13/18 05:55 O2 Sat by Pulse Oximetry 97 10/13/18 05:55 Oxygen Delivery Oxygen Delivery Room Air Medical Decision Making - MDM Narrative Medical decision making narrative: Patient was discussed with my attending physician who agrees with ED management and final disposition. They independently evaluated the patient. Please refer to their attestation to this encounter for additional information. This note was generated by [employer] voice recognition software and as a result grammatical or spelling errors may occur using this program. - Medical Records Medical records reviewed: Yes I reviewed the patient's medical records. - Lab Data Lab results reviewed: Yes I reviewed the patient's lab results. Result diagrams: 10/18/18 04:50 10/18/18 04:50 Lab Results 10/13/18 10/13/18 Range/Units 07:08 07:29 VBG pH 7.32 (7.32-7.42) pH Units VBG pCO2 22 L (41-51) mmHg VBG pO2 125 H (25-50) mmHg VBG HCO3 11 L (21-27) mEq/L Beta-Hydroxybutyric Acd > 2.00 H (0.02-0.27) mmol/L Attestation Statement - Attestation Attestation: I have seen this patient with the resident physician, I have personally evaluated this patient. I had reviewed the chart and document dictation by the resident physician and aM in agreement with the information documented by the resident physician. Please see documentation by the resident physician for complete chart including past medical history, family medical history, review of systems, current history and physical and laboratory and imaging studies. I was present for all procedures, provided direct supervision for all procedures, was present for the entirety of all procedures and provided direct guidance during the procedures. Please see documentation by the resident physician for any procedures performed. I have reviewed all interpretations of EKGs, and reviewed all EKGs performed on patient's as well. I have also reviewed reports of imaging as provided by radiology.
[2018-10-13 07:56] LABS: BUN/Creatinine Ratio 10 (6-26); Blood Urea Nitrogen 9 mg/dL (8-23); Carbon Dioxide 13 mEq/L (23-29); Chloride 92 mEq/L (98-107); Creatine Kinase 57 Units/L (30-223); Glucose 524 mg/dL (70-105); Lipase 11 Units/L (11-82); Magnesium 1.1 mg/dL (1.6-2.6); Osmolality,Calculated 290 (280-300); Potassium 3.1 mEq/L (3.5-5.1); Sodium 129 mEq/L (136-145); eGFR For African Americans > 60 (> 60); eGFR For Non-African Americans > 60 (> 60)
[2018-10-13] MEDS ORDERED: Potassium Effervescent 25 MEQ TABLET.EFF PO ONE (08:03)
[2018-10-13] MEDS ORDERED: *HR* Dextrose 50 % in Water (Syg) 50 ML SYRINGE IVP PRN ×2 (08:04→09:05)
[2018-10-13] MEDS ORDERED: Insulin Human Regular 100 UNIT in 0.9 % Sodium Chloride 100 ML IVC SCH ×2 (08:15→16:41)
--- NOTE | 2018-10-13 08:19 | Emergency Department Note ---
Disposition Clinical Impression: Diabetic ketoacidosis Joint pain Qualifiers: Joint pain location: unspecified Qualified Code(s): M25.50 - Pain in unspecified joint Disposition: Admitted As Inpatient Condition: Fair Time of Disposition: 08:28 General Adult HPI - General Chief complaint: ED Extremity Injury, Upper Stated complaint: Leg/Hip/Shoulder Pain, malaise Time Seen by Provider: 10/13/18 05:26 Source: patient, family () Mode of arrival: private vehicle Limitations: no limitations Nursing Notes Reviewed: Yes Vital Signs Reviewed: Yes - History of Present Illness HPI Narrative: 63-year-old female with type 2 diabetes who presents the emergency department with generalized fatigue. We see documented history, physical and review of systems and Dr. Carrillo and Dr. Alonzo notes and she was taken in signout pending lab workup and disposition. Pain Scale: 8 - Related Data Home Medications Medication Instructions Recorded Confirmed Cetirizine HCl [24Hour Allergy] 10 mg PO DAILY 08/26/17 10/13/18 Montelukast [Singulair] 10 mg PO DAILY 08/26/17 10/13/18 Candesartan/Hydrochlorothiazid 1 tab PO DAILY 03/11/18 10/13/18 [Atacand Hct 32-12.5 mg Tab] Amlodipine Besylate 10 mg PO DAILY 10/13/18 10/13/18 Previous Rx's Medication Instructions Recorded Alcohol Antiseptic Pads [Alcohol 1 each ACHS #100 med..pad 10/18/18 Pads] Blood-Glucose Meter, Drum-Type 1 each ACHS #1 kit 10/18/18 [Accu-Chek] Cefdinir [Omnicef] 300 mg PO BID 9 Days #18 capsule 10/18/18 Ferrous Sulfate 325 mg PO DAILY@0800 #14 tablet 10/18/18 Insulin DETEMIR [Levemir Flextouch] 35 unit SQ HS #1 pack 10/18/18 Insulin LISPRO [Humalog Jadon 0 unit SQ ACHS #5 ins.pen.hf 10/18/18 Kwikpen] Lactobacillus [Culturelle] 2 each PO DAILY 10 Days #20 10/18/18 cap.sprink Lancets/Blood Glucose Strips [Fora 1 each ACHS #1 combo..pkg 10/18/18 [id number] Strp-Lnct] Pen Needle, Diabetic, Safety 1 each ACHS #100 dis.needle 10/18/18 [Assure Id Pen Needle] Vancomycin Oral Soln [Firvanq] 125 mg PO QID 8 Days #32 ud 10/18/18 Allergies Allergy/AdvReac Type Severity Reaction Status Date / Time celecoxib [From Celebrex] Allergy Swelling Verified 10/13/18 21:17 of Lip/Tongue/Throat Penicillins Allergy Hives Verified 10/13/18 21:17 prednisone Allergy Swelling Verified 10/13/18 21:17 of Lip/Tongue/Throat duloxetine [From Cymbalta] AdvReac Severe Hallucinati Verified 10/15/18 20:30 ng All systems ED: reviewed and negative except as stated. Review of Systems: As Per HPI Constitutional: Denies: fever, chills ENT ED: Denies: congestion Cardiovascular: Denies: chest pain Respiratory: Denies: dyspnea Gastrointestinal: Denies: abdominal pain, nausea, vomiting Musculoskeletal: Reports: as per HPI Integumentary: Denies: rash Past Medical History - Past Medical History Medical history: Reports: cancer, diabetes, thyroid disease Surgical history: Reports: hysterectomy Psychiatric history: Reports: no psych history - Social History Smoking Status: Never smoker Smokeless Tobacco Status: No Alcohol use: Reports: none Drug use: Reports: none Physical Exam - General Limitations: no limitations General appearance: alert, in distress (Uncomfortable secondary to pain) - Head Head exam: atraumatic, normocephalic - Eye Eye exam: Present: normal appearance - ENT ENT exam: normal exam - Respiratory Respiratory exam: Present: normal lung sounds bilaterally. Absent: respiratory distress - Cardiovascular Cardiovascular exam: Present: regular rate, normal rhythm, irregular rhythm Course Vital Signs Temperature 98.2 F 10/13/18 05:20 Pulse Rate 124 10/13/18 05:20 Respiratory Rate 20 10/13/18 05:20 Blood Pressure 140/82 10/13/18 05:20 O2 Sat by Pulse Oximetry 98 10/13/18 05:20 Temperature 98.2 F 10/13/18 05:55 Pulse Rate 119 10/13/18 05:55 Respiratory Rate 20 10/13/18 05:55 Blood Pressure 140/82 10/13/18 05:55 O2 Sat by Pulse Oximetry 97 10/13/18 05:55 Oxygen Delivery Oxygen Delivery Room Air Medical Decision Making - MDM Narrative Medical decision making narrative: Patient taken in signout at 0700 from Carlos Carrillo and Dr. Mcnulty. In short the patient is presenting for diffuse joint pain as well as hyperglycemia. She is a diabetic who was on no medication but was recently placed back on metformin only. Fingerstick glucose rhythm 500 here in the emergency department. The patient does appear dry and has been tachycardic since arrival. Laboratory evaluation shows no anemia, leukocytosis. VBG shows pH is 7.32, PCO2 22. BMP shows sodium of 129, corrected 134 with potassium of 3.1 and anion gap of 24. Glucose 524 and beta hydroxybutyrate greater than 2. The patient does meet diagnostic criteria for diabetic ketoacidosis therefore will continue with IV fluid hydration. She has gotten 2 L fluid bolus of normal saline and we will place her on normal saline maintenance with 20 mEq potassium. She was given 50 mEq oral potassium replacement. I ordered the insulin drip right this should not be started until her potassium is greater than 5.5. I have related this with the nurse and ensure that the floor nurse does not start this medication until she has repeat BMP drawn later this morning but this one sure pharmacy has time to make the insulin drip. Discussed case with on-call hospitalist Dr. Keene who agrees with plan for admission and accepts the patient to the inpatient service. Patient agrees with and understands course of treatment plan including plan for admission. All questions answered. - Medical Records Medical records reviewed: Yes I reviewed the patient's medical records. - Lab Data Lab results reviewed: Yes I reviewed the patient's lab results. Result diagrams: 10/18/18 04:50 10/18/18 04:50 Lab Results 10/13/18 10/13/18 10/13/18 Range/Units 07:08 07:08 07:08 WBC 10.1 (4.3-11.1) K/mcL RBC 4.25 (3.82-4.97) M/mcL Hgb 12.2 (11.5-15.4) g/dL Hct 37.3 (35.3-44.9) % MCV 87.8 (83.0-100.0) fL MCH 28.7 (28.0-33.3) pg MCHC 32.7 (31.6-35.5) g/dL RDW 14.9 H (11.5-14.5) % Plt Count 175 (140-400) K/mcL MPV 11.1 (9.4-12.4) fL Seg Neutrophils % 67.0 % Band Neutrophils % 12.0 H (0-4) % Lymphocytes % 8.0 % Monocytes % 13.0 % Neutrophils # 8.0 (1.6-8.9) K/mcL Lymphocytes # 0.8 (0.6-4.6) K/mcL Monocytes # 1.3 (0.0-1.3) K/mcL Platelet Estimate Normal (Normal) VBG pH (7.32-7.42) pH Units VBG pCO2 (41-51) mmHg VBG pO2 (25-50) mmHg VBG HCO3 (21-27) mEq/L Sodium 129 L (136-145) mEq/L Potassium 3.1 L (3.5-5.1) mEq/L Chloride 92 L (98-107) mEq/L Carbon Dioxide 13 L (23-29) mEq/L BUN 9 (8-23) mg/dL Creatinine 0.87 (0.60-1.20) mg/dL Est GFR ( Amer) > 60 (> 60) Est GFR (Non-Af Amer) > 60 (> 60) BUN/Creatinine Ratio 10 (6-26) Glucose 524 H* (70-105) mg/dL Calculated Osmolality 290 (280-300) Calcium 10.0 (8.6-10.3) mg/dL Magnesium 1.1 L (1.6-2.6) mg/dL Creatine Kinase 57 (30-223) Units/L Lipase 11 (11-82) Units/L Beta-Hydroxybutyric Acd > 2.00 H (0.02-0.27) mmol/L Urine Color (Yellow) Urine Clarity (Clear) Urine pH (5.0-8.0) pH Units Ur Specific [place] (1.010-1.025) Urine Protein (Neg-Trace) mg/dL Urine Glucose (UA) (Normal) mg/dL Urine Ketones (Negative) mg/dL Urine Blood (Negative) Urine Nitrite (Negative) Urine Bilirubin (Negative) Urine Urobilinogen (Normal) mg/dL Ur Leukocyte Esterase (Negative) Urine Microscopic RBC (0-3) per hpf Urine Microscopic WBC (0-3) per hpf Ur Squamous Epith Cells (None-Few) per lpf Urine Bacteria (None-Few) per hpf Hyaline Casts (None-Few) per lpf Ur Culture Indicated? (NO) 10/13/18 10/13/18 Range/Units 07:29 08:00 WBC (4.3-11.1) K/mcL RBC (3.82-4.97) M/mcL Hgb (11.5-15.4) g/dL Hct (35.3-44.9) % MCV (83.0-100.0) fL MCH (28.0-33.3) pg MCHC (31.6-35.5) g/dL RDW (11.5-14.5) % Plt Count (140-400) K/mcL MPV (9.4-12.4) fL Seg Neutrophils % % Band Neutrophils % (0-4) % Lymphocytes % % Monocytes % % Neutrophils # (1.6-8.9) K/mcL Lymphocytes # (0.6-4.6) K/mcL Monocytes # (0.0-1.3) K/mcL Platelet Estimate (Normal) VBG pH 7.32 (7.32-7.42) pH Units VBG pCO2 22 L (41-51) mmHg VBG pO2 125 H (25-50) mmHg VBG HCO3 11 L (21-27) mEq/L Sodium (136-145) mEq/L Potassium (3.5-5.1) mEq/L Chloride (98-107) mEq/L Carbon Dioxide (23-29) mEq/L BUN (8-23) mg/dL Creatinine (0.60-1.20) mg/dL Est GFR ( Amer) (> 60) Est GFR (Non-Af Amer) (> 60) BUN/Creatinine Ratio (6-26) Glucose (70-105) mg/dL Calculated Osmolality (280-300) Calcium (8.6-10.3) mg/dL Magnesium (1.6-2.6) mg/dL Creatine Kinase (30-223) Units/L Lipase (11-82) Units/L Beta-Hydroxybutyric Acd (0.02-0.27) mmol/L Urine Color Yellow (Yellow) Urine Clarity Clear (Clear) Urine pH 5.5 (5.0-8.0) pH Units Ur Specific [place] 1.030 H (1.010-1.025) Urine Protein 30 H (Neg-Trace) mg/dL Urine Glucose (UA) >=1000 H (Normal) mg/dL Urine Ketones >=160 H (Negative) mg/dL Urine Blood Trace H (Negative) Urine Nitrite Negative (Negative) Urine Bilirubin Negative (Negative) Urine Urobilinogen Normal (Normal) mg/dL Ur Leukocyte Esterase Negative (Negative) Urine Microscopic RBC 0-3 (0-3) per hpf Urine Microscopic WBC 5-15 H (0-3) per hpf Ur Squamous Epith Cells Many H (None-Few) per lpf Urine Bacteria None Seen (None-Few) per hpf Hyaline Casts None Seen (None-Few) per lpf Ur Culture Indicated? YES A (NO) Attestation Statement - Attestation Attestation: I have seen this patient with the resident physician, I have personally evaluated this patient. I had reviewed the chart and document dictation by the resident physician and aM in agreement with the information documented by the resident physician. Please see documentation by the resident physician for complete chart including past medical history, family medical history, review of systems, current history and physical and laboratory and imaging studies. I was present for all procedures, provided direct supervision for all procedures, was present for the entirety of all procedures and provided direct guidance during the procedures. Please see documentation by the resident physician for any procedures performed. I have reviewed all interpretations of EKGs, and reviewed all EKGs performed on patient's as well. I have also reviewed reports of imaging as provided by radiology.
[2018-10-13 08:23] LABS: Lymphocytes # 0.8 K/mcL (0.6-4.6); Monocytes # 1.3 K/mcL (0.0-1.3)
[2018-10-13 08:24] LABS: Platelet Estimate Normal (Normal)
[2018-10-13 08:35] LABS: Bilirubin,Urine Negative (Negative); Blood,Urine Trace (Negative); Clarity,Urine Clear (Clear); Color,Urine Yellow (Yellow); Glucose,Urine (UA) >=1000 mg/dL (Normal); Ketones,Urine >=160 mg/dL (Negative); Leukocyte Esterase,Urine Negative (Negative); Nitrite,Urine Negative (Negative); PH,Urine 5.5 pH Units (5.0-8.0); Protein,Urine 30 mg/dL (Neg-Trace); Urobilinogen,Urine Normal (Normal)
[2018-10-13 08:38] LABS: Bacteria,Urine None Seen per hpf (None-Few); Hyaline Casts,Urine None Seen per lpf (None-Few); RBC,Urine 0-3 per hpf (0-3); Squamous Epithelial Cell,Urine Many per lpf (None-Few)
[2018-10-13] MEDS: 0.9 % Sodium Chloride w KCl 20 MEQ/1,000 ML MLS IVC SCH ×3 (08:39→19:55)
[2018-10-13] MEDS ORDERED: D5% in 0.45% NACL 1,000 ML IVC PRN (09:05)
[2018-10-13] MEDS ORDERED: D5% in 0.45% NACL w KCl 20 MEQ/1,000 ML MLS IVC PRN (09:05)
[2018-10-13] MEDS ORDERED: Insulin Regular, Human 100 UNIT/ML IV PRN (09:05)
--- NOTE | 2018-10-13 09:05 | Internal Med History&Physical ---
<NickTim bolton - Last Filed: 10/13/18 09:01> Date of Encounter: 10/13/18 Time of Encounter: 09:01 Internal Medicine - H&P: HPI Chief complaint: doesn't feel well Admitted From: Emergency Dept Plans for Post Hospital Care: Home History of present illness: Ms. Lauren is a 63 year old female with PMhx of DM type 2, osteoarthritis, obesity, hypertension, hyperlipidemia, hypothyroidism. Patient states that she was diagnosed with DM type 2 about one week ago and was started on metformin. For about one week patient states she has not been feeling well. She states that she has been feeling significantly fatigued, more so than usual. She reports increased polyuria, polydipsia. She denies recent illness or recent surgeries. Her last knee replacement was in February 2018. She denies any sick contacts. Patient reports increased non productive cough and congestion, but states she believes this is due to her allergies. She also admits to chills but denies fevers. She reports nausea with vomiting x2 episodes. reports occasional diarrhea, but believes this may be from metformin. denies hematochezia, melena, hematuria, chest pain Past Med Surg Social Fam HX - Past Medical History Medical history: cancer, diabetes, thyroid disease Additional medical history: allergic rhinitis, uterine CA, hypothyroidism Psychiatric history: no psych history - Past Surgical History Surgical History: hysterectomy Additional surgical history: thumb. shoulder. CTR. right total shoulder replacement. left hip replacement - Social History Smoking Status: Never smoker Smokeless Tobacco Status: No Alcohol use: none Drug use: none Internal Medicine - H&P: Meds Cetirizine HCl [24Hour Allergy] 10 mg PO DAILY 08/26/17 [History] Montelukast [Singulair] 10 mg PO DAILY 08/26/17 [History] Candesartan/Hydrochlorothiazid [Atacand Hct 32-12.5 mg Tab] 1 tab PO DAILY 03/11/18 [History] Amlodipine Besylate 10 mg PO DAILY 10/13/18 [History] Metformin HCl [Glumetza] 2,000 mg PO DAILY 10/13/18 [History] Allergy/AdvReac Type Severity Reaction Status Date / Time celecoxib [From Celebrex] Allergy Swelling Verified 10/13/18 21:17 of Lip/Tongue/Throat Penicillins Allergy Hives Verified 10/13/18 21:17 prednisone Allergy Swelling Verified 10/13/18 21:17 of Lip/Tongue/Throat All Systems PM: A 10-system review of systems was performed and is negative for pertinent findings except as documented above in the HPI. - Constitutional Constitutional: as per HPI - EENT Eyes: as per HPI Ears: as per HPI Nose, mouth and throat: as per HPI - Breasts Breasts: as per HPI - Cardiovascular Cardiovascular ROS IM: as per HPI - Respiratory Respiratory: as per HPI - Gastrointestinal Gastrointestinal: as per HPI - Genitourinary Genitourinary: as per HPI Menstruation: as per HPI - Musculoskeletal Musculoskeletal ROS IM: as per HPI - Integumentary Integumentary IM: as per HPI - Neurological Neurological ROS: as per HPI - Psychiatric Psychiatric: as per HPI - Endocrine Endocrine IM: as per HPI - Hematologic/Lymphatic Hematologic/Lymphatic: as per HPI - Allergic/Immunologic Allergic/Immunologic: as per HPI - Constitutional Vitals: Temp Pulse Resp BP Pulse Ox 98.2 F 119 20 140/82 97 10/13/18 05:55 10/13/18 05:55 10/13/18 05:55 10/13/18 05:55 10/13/18 05:55 General appearance: Present: A&O X 3, pleasant, no acute distress, answers questions appropriately Exam: alert and oriented x3 - Head Head exam: Present: atraumatic, normocephalic - Neck Neck exam general surgery: Present: supple, trachea midline - Respiratory Respiratory exam: Present: CTAB - Cardiovascular Cardiovascular exam: Present: RRR, +S1, +S2 - GI/Abdominal GI/Abdominal exam: Present: normal bowel sounds, soft. Absent: distended, tenderness - Extremities Exam Extremities exam: Absent: cyanotic, pedal edema - Neurological Exam Neurological exam: Present: alert, oriented X3, no focal deficits. Absent: facial droop, speech deficit - Psychiatric Psychiatric exam: Present: normal affect, normal mood Internal Med - H&P Results - Labs CBC & Chem 7: 10/13/18 07:08 10/13/18 07:08 Labs: Short CBC 10/13/18 Range/Units 07:08 WBC 10.1 (4.3-11.1) K/mcL Hgb 12.2 (11.5-15.4) g/dL Hct 37.3 (35.3-44.9) % Plt Count 175 (140-400) K/mcL Neutrophils # 8.0 (1.6-8.9) K/mcL BMP 10/13/18 07:08 Sodium 129 L Potassium 3.1 L Chloride 92 L Carbon Dioxide 13 L BUN 9 Creatinine 0.87 Glucose 524 H* Calcium 10.0 Urine 10/13/18 Range/Units 08:00 Urine Color Yellow (Yellow) Urine Clarity Clear (Clear) Urine pH 5.5 (5.0-8.0) pH Units Ur Specific [place] 1.030 H (1.010-1.025) Urine Protein 30 H (Neg-Trace) mg/dL Urine Glucose (UA) >=1000 H (Normal) mg/dL - ABG Interpretation ABG results: 10/13/18 07:29 VBG pH 7.32 VBG pCO2 22 L VBG pO2 125 H VBG HCO3 11 L - Assessment and Plan (1) Diabetic ketoacidosis Current Visit: Yes Status: Acute Assessment and plan: glucose: 524, Anion Gap: 24, increased beta hydroxybutyric acid, serum bicarb: 13 corrected sodium: 135 etiology unclear. patient reports increased cough, but no recent surgeries or other obvious illness besides symptoms of seasonal allergies. Plan: get portable CXR Potassium 3.1, replaced and will re check. if above 3.5, will start insulin gtt per DKA protocol. transfer to when bed available. Qualifiers: Diabetes mellitus type: type 2 Diabetes mellitus complication detail: without coma Qualified Code(s): E11.10 - Type 2 diabetes mellitus with ketoacidosis without coma (2) Status post total hip replacement, right Current Visit: No Status: Chronic (3) HTN (hypertension) Current Visit: No Status: Chronic Assessment and plan: continue amlodipine, candesartan/HCTZ Qualifiers: Hypertension type: essential hypertension Qualified Code(s): I10 - Essential (primary) hypertension (4) Hypothyroid Current Visit: No Status: Chronic Assessment and plan: continue synthroid Qualifiers: Hypothyroidism type: unspecified Qualified Code(s): E03.9 - Hypothyroidism, unspecified (5) Obesity Current Visit: No Status: Chronic Assessment and plan: lifestyle modifications advised Qualifiers: Obesity type: due to excess calories Obesity classification: adult class 1 (BMI 30 - 34.9) Serious obesity comorbidity presence: without serious comorbidity Body mass index: BMI 34.0-34.9 Qualified Code(s): E66.09 - Other obesity due to excess calories; Z68.34 - Body mass index (BMI) 34.0-34.9, adult (6) DVT prophylaxis Current Visit: Yes Status: Acute Assessment and plan: heparin SQ - Time Spent With Patient Total time spent is greater than 50% in coordination of care (as documented) at patient's floor/unit and/or counseling patient: <Tana Keene Z - Last Filed: 10/14/18 11:27> Date of Encounter: 10/13/18 Internal Medicine - H&P: HPI History of present illness: Ms. Lauren is a 63 year old female All Systems PM: A 10-system review of systems was performed and is negative for pertinent findings except as documented above in the HPI. - Constitutional Vitals: Temp Pulse Resp BP Pulse Ox 99.8 F H 97 18 125/67 97 10/14/18 07:57 10/14/18 08:00 10/14/18 07:57 10/14/18 07:57 10/14/18 09:00 Internal Med - H&P Results - Labs CBC & Chem 7: 10/14/18 04:40 10/14/18 03:00 Labs: Short CBC 10/13/18 10/14/18 Range/Units 13:50 04:40 WBC 5.9 8.4 (4.3-11.1) K/mcL Hgb 12.5 11.6 (11.5-15.4) g/dL Hct 38.6 35.8 (35.3-44.9) % Plt Count 152 152 (140-400) K/mcL Neutrophils # 5.1 6.4 (1.6-8.9) K/mcL BMP 10/13/18 10/13/18 10/13/18 13:50 18:45 22:42 Sodium 135 L 135 L 134 L Potassium 4.1 3.6 3.9 Chloride 104 108 H 106 Carbon Dioxide 12 L 17 L 17 L BUN 9 8 8 Creatinine 0.85 0.66 0.61 Glucose 260 H 151 H 181 H Calcium 9.3 8.8 8.5 L 10/14/18 03:00 Sodium 134 L Potassium 3.7 Chloride 108 H Carbon Dioxide 17 L BUN 9 Creatinine 0.71 Glucose 205 H Calcium 8.3 L Cardiac Enzymes 10/13/18 10/14/18 10/14/18 Range/Units 13:50 04:40 09:20 Troponin I < 0.03 0.09 H* 0.19 H* (< 0.04) ng/mL Urine 10/13/18 Range/Units 08:00 Urine Color Yellow (Yellow) Urine Clarity Clear (Clear) Urine pH 5.5 (5.0-8.0) pH Units Ur Specific [place] 1.030 H (1.010-1.025) Urine Protein 30 H (Neg-Trace) mg/dL Urine Glucose (UA) >=1000 H (Normal) mg/dL - ABG Interpretation ABG results: 10/13/18 10/13/18 10/13/18 07:29 14:06 19:37 ABG pH ABG pCO2 ABG pO2 ABG HCO3 ABG Total CO2 ABG O2 Saturation ABG Base Excess VBG pH 7.32 7.23 L 7.37 D VBG pCO2 22 L 28 L 29 L VBG pO2 125 H 200 H 204 H VBG HCO3 11 L 12 L 16 L 10/13/18 10/14/18 10/14/18 23:05 04:08 04:59 ABG pH 7.24 L ABG pCO2 28 L ABG pO2 54 L ABG HCO3 12 L ABG Total CO2 13 L ABG O2 Saturation 83 L ABG Base Excess -14 L VBG pH 7.24 L D 7.27 L VBG pCO2 39 L 32 L VBG pO2 73 H 79 H VBG HCO3 17 L 15 L - Impressions ITS Impressions Chest X-Ray 10/13/18 09:14 IMPRESSION: No acute cardiopulmonary disease D/ / Martin Valdes MD / Martin Valdes MD Interpreting Provider: Martin Valdes MD Chest X-Ray 10/13/18 13:42 IMPRESSION: Single lateral view of the chest. No acute process. D/ / Osbaldo Still MD / Osbaldo Still MD Interpreting Provider: Osbaldo Still MD Chest X-Ray 10/14/18 04:07 IMPRESSION: AP portable view of the chest time stamped at 418 hours demonstrates overlying cardiac monitoring electrodes. Stable cardiomegaly is noted. No vascular congestion, focal consolidation, effusion, or pneumothorax is noted. Reverse type shoulder arthroplasty is noted right side. RECOMMENDATION: Stable cardiac size. No evidence of acute cardiopulmonary process or interval change from prior exam. D/ / Zarina Ayala MD / Zarina Ayala MD Interpreting Provider: Zarina Ayala MD - Time Spent With Patient Total time spent is greater than 50% in coordination of care (as documented) at patient's floor/unit and/or counseling patient: - Attending Attestation I performed a history and physical examination of the patient and discussed his management with the resident. I reviewed the residents note and agree with the documented findings and plan of care.
[2018-10-13] MEDS ORDERED: Naloxone 0.4 MG/ML INJ IVP PRN (10:24)
[2018-10-13 11:01] LABS: BUN/Creatinine Ratio 11 (6-26); Blood Urea Nitrogen 9 mg/dL (8-23); Calcium 8.8 mg/dL (8.6-10.3); Carbon Dioxide 14 mEq/L (23-29); Chloride 99 mEq/L (98-107); Glucose 453 mg/dL (70-105); Osmolality,Calculated 292 (280-300); Sodium 132 mEq/L (136-145); eGFR For African Americans > 60 (> 60); eGFR For Non-African Americans > 60 (> 60)
[2018-10-13] MEDS ORDERED: *HR* Metoprolol 5 MG/5 ML VIAL IVP ONE (12:13)
[2018-10-13] MEDS ORDERED: *HR* LORazepam 2 MG/ML VIAL IVP ONE (12:22)
[2018-10-13] MEDS ORDERED: *HR* LORazepam 2 MG/ML VIAL ONE (12:22)
--- NOTE | 2018-10-13 13:53 | Event Note ---
<Tim Hernadez - Last Filed: 10/13/18 17:21> Date of Encounter: 10/13/18 Time of Encounter: 12:30 around 12:30 received page from nurse that patient was tachycardic with HR in 140s, anxious, and shivering. I went up to evaluate the patient. She stated that she was very anxious, did not want to lay down for EKG and preferred to sit up. nursing staff had trouble getting EKG because patient would not lay still. patient received 1mg ativan that helped her symptoms, with HR decreased to 120s. blood cultures, repeat CBC, urine cultures, chest xray, troponins ordered stat. attending physician arrived at bedside shortly afterwards and evaluated the patient. preliminary tests all negative. due to low grade temperature, will give one dose of vancomycin and zosyn while awaiting results of blood cultures. <Tana Keene - Last Filed: 10/15/18 11:23> Date of Encounter: 10/13/18 I performed a history and physical examination of the patient and discussed his management with the resident. I reviewed the residents note and agree with the documented findings and plan of care.
[2018-10-13 14:04] LABS: Hematocrit 38.6 % (35.3-44.9); Hemoglobin 12.5 g/dL (11.5-15.4); Lymphocytes # 0.5 K/mcL (0.6-4.6); Mean Corpuscular HGB Conc 32.4 g/dL (31.6-35.5); Mean Corpuscular Hemoglobin 28.6 pg (28.0-33.3); Mean Corpuscular Volume 88.3 fL (83.0-100.0); Mean Platelet Volume 11.4 fL (9.4-12.4); Platelet Count 152 K/mcL (140-400); Red Blood Count 4.37 M/mcL (3.82-4.97); Red Cell Distribution Width 15.3 % (11.5-14.5); White Blood Count 5.9 K/mcL (4.3-11.1)
[2018-10-13 14:09] LABS: VBG HCO3 12 mEq/L (21-27); VBG PCO2 28 mmHg (41-51); VBG PH 7.23 pH Units (7.32-7.42); VBG PO2 200 mmHg (25-50)
[2018-10-13 14:15] LABS: BUN/Creatinine Ratio 11 (6-26); Blood Urea Nitrogen 9 mg/dL (8-23); Calcium 9.3 mg/dL (8.6-10.3); Carbon Dioxide 12 mEq/L (23-29); Chloride 104 mEq/L (98-107); Glucose 260 mg/dL (70-105); Osmolality,Calculated 288 (280-300); Potassium 4.1 mEq/L (3.5-5.1); Sodium 135 mEq/L (136-145); eGFR For African Americans > 60 (> 60); eGFR For Non-African Americans > 60 (> 60)
[2018-10-13 14:39] LABS: Monocytes # 0.2 K/mcL (0.0-1.3); Neutrophils # 5.1 K/mcL (1.6-8.9); Platelet Estimate Normal (Normal)
[2018-10-13] MEDS ORDERED: Cefepime HCl 1,000 MG in 0.9 % Sodium Chloride Mini Bag 100 ML IVPB ONE (17:19)
[2018-10-13] MEDS: *HR* Heparin 5,000 UNIT/ML VIAL SQ SCH (18:05)
[2018-10-13 19:43] LABS: VBG HCO3 16 mEq/L (21-27); VBG PCO2 29 mmHg (41-51); VBG PH 7.37 pH Units (7.32-7.42); VBG PO2 204 mmHg (25-50)
[2018-10-13] MEDS: Ondansetron 4 MG/2 ML VIAL IVP PRN (19:56)
--- NOTE | 2018-10-13 20:20 | Electrocardiograph Report ---
[place] [id number] Test Date: 2018-10-13 Pat Name: Mary Lauren Department: [id number] Room: 2N08 Gender: F Instructional Designer: : 1955 Requested By: Chadd Mcnulty Order Number: [id number] Reading MD: Lesley Matos Measurements Intervals [place] Rate: 111 P: 88 MT: 160 QRS: 31 QRSD: 98 T: -18 QT: 371 QTc: 505 Interpretive Statements Sinus tachycardia Possible anteroseptal infarct, old Prolonged QT interval Nonspecific ST-T abnormalities Electronically Signed On 10-13-2018 20:19:21 EDT by Lesley Matos
--- NOTE | 2018-10-13 20:32 | Electrocardiograph Report ---
[address] [address] Test Date: 2018-10-13 Pat Name: Mary Lauren Department: 110 Room: 2N08 Gender: F Enterprise Architect: : 1955 Requested By: Tim Hernadez Order Number: [id number] Reading MD: Lesley Matos Measurements Intervals [place] Rate: 138 P: GA: 0 QRS: -9 QRSD: 90 T: -2 QT: 330 QTc: 410 Interpretive Statements Technically poor tracing - please repeat ECG SUPRAVENTRICULAR TACHYCARDIA LOW QRS VOLTAGE IN PRECORDIAL LEADS POSSIBLE ANTEROSEPTAL MYOCARDIAL INFARCTION, PROBABLY OLD Electronically Signed On 10-13-2018 20:30:45 EDT by Lesley Matos
[2018-10-13] MEDS ORDERED: Calcium Gluconate 1gm/50mL 1 GM/50 ML BAG IVPB PRN (21:23)
[2018-10-13 21:45] LABS: BUN/Creatinine Ratio 12 (6-26); Blood Urea Nitrogen 8 mg/dL (8-23); Calcium 8.8 mg/dL (8.6-10.3); Carbon Dioxide 17 mEq/L (23-29); Chloride 108 mEq/L (98-107); Glucose 151 mg/dL (70-105); Osmolality,Calculated 281 (280-300); Potassium 3.6 mEq/L (3.5-5.1); Sodium 135 mEq/L (136-145); eGFR For African Americans > 60 (> 60); eGFR For Non-African Americans > 60 (> 60)
[2018-10-13] MEDS: Acetaminophen 325 MG TABLET PO PRN (23:06)
[2018-10-13 23:10] LABS: VBG HCO3 17 mEq/L (21-27); VBG PCO2 39 mmHg (41-51); VBG PH 7.24 pH Units (7.32-7.42); VBG PO2 73 mmHg (25-50)
[2018-10-13 23:21] LABS: BUN/Creatinine Ratio 13 (6-26); Blood Urea Nitrogen 8 mg/dL (8-23); Calcium 8.5 mg/dL (8.6-10.3); Carbon Dioxide 17 mEq/L (23-29); Chloride 106 mEq/L (98-107); Glucose 181 mg/dL (70-105); Osmolality,Calculated 281 (280-300); Potassium 3.9 mEq/L (3.5-5.1); Sodium 134 mEq/L (136-145); eGFR For African Americans > 60 (> 60); eGFR For Non-African Americans > 60 (> 60)
[2018-10-14 03:42] LABS: BUN/Creatinine Ratio 13 (6-26); Blood Urea Nitrogen 9 mg/dL (8-23); Calcium 8.3 mg/dL (8.6-10.3); Carbon Dioxide 17 mEq/L (23-29); Chloride 108 mEq/L (98-107); Glucose 205 mg/dL (70-105); Osmolality,Calculated 283 (280-300); Potassium 3.7 mEq/L (3.5-5.1); Sodium 134 mEq/L (136-145); eGFR For African Americans > 60 (> 60); eGFR For Non-African Americans > 60 (> 60)
[2018-10-14] MEDS: Ondansetron 4 MG/2 ML VIAL IVP PRN (03:45)
[2018-10-14] MEDS ORDERED: *HR* LORazepam 2 MG/ML VIAL ONE (04:08)
[2018-10-14 04:11] LABS: ABG Base Excess -14 mEq/L (-2 to 3); ABG HCO3 12 mEq/L (21-27); ABG Oxygen Saturation 83 % (95-98); ABG PCO2 28 mmHg (35-45); ABG PH 7.24 pH Units (7.32-7.45); ABG PO2 54 mmHg (85-104); ABG TCO2 13 mEq/L (20-26)
[2018-10-14] MEDS ORDERED: Ipratropium/Albuterol Neb 3 ML ONE (04:11)
[2018-10-14] MEDS ORDERED: *HR* Morphine 2 MG/ML SYRINGE IV ONE (04:15)
[2018-10-14] MEDS ORDERED: Ipratropium/Albuterol Neb 3 ML IH ONE (04:30)
[2018-10-14] MEDS ORDERED: *HR* LORazepam 2 MG/ML VIAL IVP ONE (05:00)
[2018-10-14 05:02] LABS: VBG HCO3 15 mEq/L (21-27); VBG PCO2 32 mmHg (41-51); VBG PH 7.27 pH Units (7.32-7.42); VBG PO2 79 mmHg (25-50)
[2018-10-14 05:07] LABS: Hematocrit 35.8 % (35.3-44.9); Hemoglobin 11.6 g/dL (11.5-15.4); Mean Corpuscular HGB Conc 32.4 g/dL (31.6-35.5); Mean Corpuscular Hemoglobin 28.2 pg (28.0-33.3); Mean Corpuscular Volume 87.1 fL (83.0-100.0); Mean Platelet Volume 10.8 fL (9.4-12.4); Platelet Count 152 K/mcL (140-400); Red Blood Count 4.11 M/mcL (3.82-4.97); Red Cell Distribution Width 15.5 % (11.5-14.5); White Blood Count 8.4 K/mcL (4.3-11.1)
[2018-10-14] MEDS ORDERED: D5% in Water 1,000 ML IVC PRN (05:12)
[2018-10-14] MEDS ORDERED: Dextrose Gel 15 GM/37.5 ML TUBE PO PRN ×2 (05:12)
[2018-10-14] MEDS ORDERED: *HR* Dextrose 50 % in Water (Syg) 50 ML SYRINGE IVP PRN (05:12)
[2018-10-14 05:25] LABS: Magnesium 1.6 mg/dL (1.6-2.6); Phosphorous 1.5 mg/dL (2.7-4.5)
--- NOTE | 2018-10-14 05:27 | Event Note ---
Date of Encounter: 10/14/18 Time of Encounter: 05:15 Patient's nurse informed me that the patient was becoming more tachycardic, tachypnea, hypoxic. She also informed me that her blood culture had returned positive for Escherichia coli and that lactic acid was elevated. I went to check on the patient, she was pale and shaking and coughing and somnolent. She was also hypoxic in the high 80s. We got stat ABG, chest x-ray, EKG, troponin, repeat blood cultures, and started 15 L oxygen mask, DuoNeb, 1 mg Ativan and 1 mg morphine. The patient responded well and oxygen saturation increased to the high 90s, her color returned and she stop shaking, she became more alert and was completely oriented. Somewhat concerned that the patient might have a pulmonary embolism and should have a CTA as soon as she is able to tolerate it, we did not order at the time because she would not be able to lie flat. She is currently oxygenating and ventilating appropriately and hemodynamically stable however she will require close observation.
[2018-10-14 05:32] LABS: Large Platelets Present (Not Present); Lymphocytes # 0.7 K/mcL (0.6-4.6); Monocytes # 1.3 K/mcL (0.0-1.3); Neutrophils # 6.4 K/mcL (1.6-8.9); Platelet Estimate Normal (Normal); Polychromasia 1+ (Not Present)
[2018-10-14] MEDS ORDERED: Insulin DETEMIR 100 UNIT/ML X5UNITS SQ ONE (05:47)
[2018-10-14] MEDS: Cefepime HCl 1,000 MG in Water for inj. (sterile) 10 ML IVPB SCH ×2 (05:48→17:03)
[2018-10-14] MEDS: *HR* Heparin 5,000 UNIT/ML VIAL SQ SCH (06:08)
[2018-10-14] MEDS: 0.9 % Sodium Chloride w KCl 20 MEQ/1,000 ML MLS IVC SCH (06:46)
[2018-10-14] MEDS: Loratadine 10 MG TABLET PO SCH (08:36)
[2018-10-14] MEDS: amLODIPine 5 MG TABLET PO SCH (08:36)
[2018-10-14] MEDS: hydroCHLOROthiazide 25 MG TABLET PO SCH (08:36)
[2018-10-14] MEDS: Insulin LISPRO 300 UNITS/3 ML VIAL SQ SCH ×3 (08:37→17:15)
[2018-10-14] MEDS ORDERED: Isovue-370 500 ML BOTTLE IVP ONE (09:18)
[2018-10-14] MEDS ORDERED: *HR* Enoxaparin 100 MG/ML SYRINGE SQ STA (09:23)
[2018-10-14] MEDS ORDERED: Furosemide 20 MG/2 ML VIAL IVP ONE (09:27)
--- NOTE | 2018-10-14 09:33 | Internal Med Progress Note ---
Hospitalist Progress Note - Encounter Date of Encounter: 10/14/18 Time of Encounter: 09:30 - Subjective Interval History: Patient was seen and examined with present at bedside. Patient is saturating well on nasal cannula and states she feels better compared to earlier this morning. Early this morning patient was noted to be hypoxic, tachycardic, and tachypneic. She is currently saturating well on nasal cannula and denies any shortness of breath. She denies any chest pain or palpitations. She is AAO x 3. No fever or chills reported. States she has to use the bathroom immediately. She is drowsy but able to converse appropriately. she did receive Ativan IV earlier this morning as she was noted to be extremely anxious. Noted to have bibasilar rales on clinical exam which could be contributing to patients respiratory distress and inability to lay flat. Will administer one time dose of lasix 20mg IV. CTA chest has been ordered and pt to receive one time dose of Lovenox 90mg SQ given high suspicion for PE. Ten point ROS is negative except as listed above - Exam Vitals: Temp Pulse Resp BP Pulse Ox 99.8 F H 97 18 125/67 92 10/14/18 07:57 10/14/18 08:00 10/14/18 07:57 10/14/18 07:57 10/14/18 07:57 Exam: General: AAO x 3, Drowsy but conversing appropriately, morbidly obese HEENT: EOMI, PERRLA, NC/AT, no scleral icterus Respiratory: bibasilar rales, equal air entry bilaterally, no wheezing Cardiovascular: Sinus rhythm, tachycardia present, no murmurs GI: Soft, Non tender, non distended, normal bowel sounds Ext: No edema, no tenderness, positive pulses Neuro: AAO x 3, no focal deficits Rest of the clinical exam is noncontributory - Summary of Assessment and Plan Summary of Assessment and Plan: Patient is a 63y/o female with PMH of DM type II, hypertension, hyperlipidemia, hypothyroidism, obesity who is admitted for DKA. Assessment/Plan 1. Sepsis with bacteremia likely secondary to UTI 1/2 bottle of blood culture reporting gram negative elidia urine culture reporting gram negative elidia f/u repeat blood cultures continue IV Abx at this time (Cefepime) hold off any further IV fluids given volume overload status as per clinical exam findings tylenol prn fever will closely monitor 2. Acute respiratory distress with hypoxia likely secondary to volume overload given the fluid resuscitation required for treatment of DKA, however given tachycardia, tachypnea, and hypoxia, will obtain CTA chest to rule out PE One time dose of Lasix 20mg IV to be given stat will administer therapeutic dose of Lovenox SQ due to high suspicion of PE continue O2 supplementation as needed closely monitor respiratory status 3. Diabetic ketoacidosis likely secondary to underlying infection DKA resolved pt started on basal and sliding scale insulin coverage tolerating PO intake will closely monitor BG 4. Normal anion gap metabolic acidosis likely secondary to underlying infectious etiology and DKA will initiate PO bicarb supplementation will closely monitor 5. Lactic acidosis likely secondary to acute respiratory distress with hypoxia clinically improving will repeat Lactate level at this time 6. Elevated TNI likely demand ischemia in the setting of DKA/bacteremia/Acute respiratory distress with hypoxia will closely monitor serial TNI no chest pain reported at this time 7. Uncontrolled Diabetes Mellitus HbA1C on 10/05/18: 16.3 continue basal and sliding scale insulin coverage pt reported of not being on any insulin as outpatient will need Insulin support on discharge will obtain diabetic education nutrition evaluation will closely monitor BG and FS glucose ADA diet 8. Electrolyte abnormality currently on electrolyte protocol Hyponatremia, Hypophosphatemia: NaPhos supplemented will closely monitor electrolytes and replace as needed 9. Hx of HTN BP within acceptable range continue home medications closely monitor BP DVT ppx: Lovenox SQ Care plan discussed with patient/Family/RN/pharmacist/case management. - Time Spent with Patient Total time spent is greater than 50% in coordination of care (as documented) at patient's floor/unit and/or counseling patient: 40minutes Greater than 35 minutes Internal Medicine: Result - Labs CBC & Chem 7: 10/14/18 04:40 10/14/18 03:00 Labs: Short CBC 10/13/18 10/14/18 Range/Units 13:50 04:40 WBC 5.9 8.4 (4.3-11.1) K/mcL Hgb 12.5 11.6 (11.5-15.4) g/dL Hct 38.6 35.8 (35.3-44.9) % Plt Count 152 152 (140-400) K/mcL Neutrophils # 5.1 6.4 (1.6-8.9) K/mcL BMP 10/13/18 10/13/18 10/13/18 09:57 13:50 18:45 Sodium 132 L 135 L 135 L Potassium 4.0 D 4.1 3.6 Chloride 99 104 108 H Carbon Dioxide 14 L 12 L 17 L BUN 9 9 8 Creatinine 0.85 0.85 0.66 Glucose 453 H 260 H 151 H Calcium 8.8 9.3 8.8 10/13/18 10/14/18 22:42 03:00 Sodium 134 L 134 L Potassium 3.9 3.7 Chloride 106 108 H Carbon Dioxide 17 L 17 L BUN 8 9 Creatinine 0.61 0.71 Glucose 181 H 205 H Calcium 8.5 L 8.3 L Cardiac Enzymes 10/13/18 10/14/18 Range/Units 13:50 04:40 Troponin I < 0.03 0.09 H* (< 0.04) ng/mL Urine 10/13/18 Range/Units 08:00 Urine Color Yellow (Yellow) Urine Clarity Clear (Clear) Urine pH 5.5 (5.0-8.0) pH Units Ur Specific [place] 1.030 H (1.010-1.025) Urine Protein 30 H (Neg-Trace) mg/dL Urine Glucose (UA) >=1000 H (Normal) mg/dL - ABG Interpretation ABG results: ABG ABG pH 7.24 pH Units (7.32-7.45) L 10/14/18 04:08 ABG pCO2 28 mmHg (35-45) L 10/14/18 04:08 ABG pO2 54 mmHg (85-104) L 10/14/18 04:08 ABG O2 Saturation 83 % (95-98) L 10/14/18 04:08 - Impressions Impressions Chest X-Ray 10/13/18 09:14 IMPRESSION: No acute cardiopulmonary disease D/ / Martin Valdes MD / Martin Valdes MD Interpreting Provider: Martin Valdes MD Chest X-Ray 10/13/18 13:42 IMPRESSION: Single lateral view of the chest. No acute process. D/ / Osblado Still MD / Osbaldo Still MD Interpreting Provider: Osbaldo Still MD Chest X-Ray 10/14/18 04:07 IMPRESSION: AP portable view of the chest time stamped at 418 hours demonstrates overlying cardiac monitoring electrodes. Stable cardiomegaly is noted. No vascular congestion, focal consolidation, effusion, or pneumothorax is noted. Reverse type shoulder arthroplasty is noted right side. RECOMMENDATION: Stable cardiac size. No evidence of acute cardiopulmonary process or interval change from prior exam. D/ / Zarina Ayala MD / Zarina Ayala MD Interpreting Provider: Zarina Ayala MD Consult Discharge Plan - Plan Referrals: Ghulam Hernandez DO [Primary Care Provider] - 10/20/18 1:00 pm
[2018-10-14 10:51] LABS: Enterococcus by PCR Not Detected (Not Detect); Staphylococcus aureus by PCR Not Detected (Not Detect); Staphylococcus by PCR Not Detected (Not Detect); Streptococcus by PCR Not Detected (Not Detect); blaKPC Carbapenem-Resist Gene Not Detected (Not Detect); mecA Methicillin-Resist Gene Not Detected (Not Detect); vanA/B Vancomycin-Resist Genes Not Detected (Not Detect)
[2018-10-14 10:52] LABS: Acinetobacter baumannii by PCR Not Detected (Not Detect); Candida albicans by PCR Not Detected (Not Detect); Candida glabrata by PCR Not Detected (Not Detect); Candida krusei by PCR Not Detected (Not Detect); Candida parapsilosis by PCR Not Detected (Not Detect); Candida tropicalis by PCR Not Detected (Not Detect); Enterobacter cloacae Cmplx PCR Not Detected (Not Detect); Enterobacteriaceae by PCR DETECTED (Not Detect); Escherichia coli by PCR DETECTED (Not Detect); Klebsiella oxytoca by PCR Not Detected (Not Detect); Klebsiella pneumoniae by PCR Not Detected (Not Detect); Proteus by PCR Not Detected (Not Detect); Pseudomonas aeruginosa by PCR Not Detected (Not Detect); Serratia marcescens by PCR Not Detected (Not Detect); Streptococcus agalactiae(B)PCR Not Detected (Not Detect); Streptococcus pneumoniae PCR Not Detected (Not Detect); Streptococcus pyogenes (A) PCR Not Detected (Not Detect)
--- NOTE | 2018-10-14 12:30 | Cardiology Consult Note ---
Date of Encounter: 10/14/18 Time of Encounter: 12:30 Assessment and Plan (1) Elevated troponin I measurement Current Visit: Yes Status: Acute Per Cardiology: Initial troponin less than 0.03, 0.09, and then 0.19. Echo: Impressions: LVEF 60-65%. Mild left ventricular diastolic dysfunction. Mild right ventricular dilatation with normal function. Mild mitral regurgitation. Mild tricuspid regurgitation. No pulmonary hypertension. Left Ventricular Wall Motion: Rest Echo Findings All wall segments showed normal motion. No CP. Suspect type II demand ischemia in setting of bactermia, DKA, metabolic abnormalities. No cardiac rehabilitation consult warranted. Discussed and reviewed with Dr. Melton, cardiology signing off, recommend outpatient follow-up-- arranged, re-consult as needed. (2) Tachycardia Current Visit: Yes Status: Acute Per Cardiology: Avg HR past 24 hrs 104, currently SR 90's. Strip noted to be ST 150-- reviewed with Dr. Melton. CT - PE. Afebrile now, had a temp of 101 during stay. WBC stable. Discussion w patient/family: The assessment and plan as outlined above was discussed with the patient and/or family members who expressed understanding and agreement. All questions were answered. Thank you for involving us in the care of your patient. Please call with any questions. History of Present Illness Consult date: 10/14/18 Requesting physician: Hillary Patrick Consult reason: Troponin Chief complaint: Fatigue History of present illness: Ms. Lauren is a 63 year old female with PMhx: DM2, OA, obesity, HTN, HLD, hypothyroidism. Recently diagnosed with DM and started on Metformin. Presented with fatigue. Cardiology consult today for elevated troponin. Patient seen with at bedside. She denied any chest pain. Reports her normal state of health up until prior to admission. She does report upon admission did have some chills, denied any fever. She does confirm concern that is overall not feeling well and fatigue. Denies any shortness of breath, palpitations, dizziness, syncope, falls. Denies any active bleeding or blood loss. Denies any known history of CAD, has never had ischemic evaluation. Reports family history of brother with CAD with bypass in his 50s. Reported dad from possible CA at age 39. Currently she feels improved since hospital stay. Past Med Surg Social Fam HX - Past Medical History Attestation: Yes The following information was validated with the patient. Source: patient, old records reviewed, obtained from family Medical history: cancer, diabetes, thyroid disease Additional medical history: allergic rhinitis, uterine CA, hypothyroidism Psychiatric history: no psych history - Past Surgical History Surgical History: hysterectomy, orthopedic, other Additional surgical history: thumb. shoulder. CTR. right total shoulder replacement. left hip replacement - Social History Smoking Status: Never smoker Smokeless Tobacco Status: No Alcohol use: none Drug use: none Medications and Allergies Cetirizine HCl [24Hour Allergy] 10 mg PO DAILY 08/26/17 [History] Montelukast [Singulair] 10 mg PO DAILY 08/26/17 [History] Candesartan/Hydrochlorothiazid [Atacand Hct 32-12.5 mg Tab] 1 tab PO DAILY 03/11/18 [History] Amlodipine Besylate 10 mg PO DAILY 10/13/18 [History] Metformin HCl [Glumetza] 2,000 mg PO DAILY 10/13/18 [History] Allergy/AdvReac Type Severity Reaction Status Date / Time celecoxib [From Celebrex] Allergy Swelling Verified 10/13/18 21:17 of Lip/Tongue/Throat Penicillins Allergy Hives Verified 10/13/18 21:17 prednisone Allergy Swelling Verified 10/13/18 21:17 of Lip/Tongue/Throat All Systems Review: The remainder of the systems were reviewed and are negative - Constitutional Constitutional: fatigue - Cardiovascular Cardiovascular: as per HPI Physical Examination Vital Signs, Last 4 Hours Temp Pulse Resp BP Pulse Ox 10/14/18 12:21 99.2 F 94 18 111/72 98 10/14/18 09:00 97 General: Conversant, No Apparent Distress HEENT: Atraumatic, Normocephaly, Mucus Membranes Moist Neck: No JVD, Normal carotid pulses Cardiac: Reg Rate and Rhythm, Normal S1 and S2, No Murmur Lungs: Normal Breath Sounds, No Wheeze, Rales, Rhonchi Neuro: Alert and responsive, No focal deficits noted Abdomen: Soft, Non-Tender Skin: No rashes noted on visualized skin Musculoskeletal: No Chest Wall Tenderness Extremities: No Clubbing, No Cyanosis, No Edema, Normal Pulses Results 10/14/18 04:40 10/14/18 03:00 Lab Results Laboratory Tests 10/13/18 10/13/18 10/14/18 13:50 13:50 03:00 WBC Hgb Hct Plt Count Creatinine 0.71 Est GFR (Non-Af Amer) > 60 Magnesium Troponin I < 0.03 Enterobacteriac sp PCR DETECTED A E. coli (PCR) DETECTED A 10/14/18 10/14/18 10/14/18 04:40 04:40 04:40 WBC 8.4 Hgb 11.6 Hct 35.8 Plt Count 152 Creatinine Est GFR (Non-Af Amer) Magnesium 1.6 Troponin I 0.09 H* Enterobacteriac sp PCR E. coli (PCR) 10/14/18 09:20 WBC Hgb Hct Plt Count Creatinine Est GFR (Non-Af Amer) Magnesium Troponin I 0.19 H* Enterobacteriac sp PCR E. coli (PCR) ITS Impressions Chest X-Ray 10/13/18 09:14 IMPRESSION: No acute cardiopulmonary disease D/ / Martin Valdes MD / Martin Valdes MD Interpreting Provider: Martin Valdes MD Chest X-Ray 10/13/18 13:42 IMPRESSION: Single lateral view of the chest. No acute process. D/ / Osbaldo Still MD / Osbaldo Still MD Interpreting Provider: Osbaldo Still MD Chest X-Ray 10/14/18 04:07 IMPRESSION: AP portable view of the chest time stamped at 418 hours demonstrates overlying cardiac monitoring electrodes. Stable cardiomegaly is noted. No vascular congestion, focal consolidation, effusion, or pneumothorax is noted. Reverse type shoulder arthroplasty is noted right side. RECOMMENDATION: Stable cardiac size. No evidence of acute cardiopulmonary process or interval change from prior exam. D/ / Zarina Ayala MD / Zarina Ayala MD Interpreting Provider: Zarina Ayala MD Chest CTA 10/14/18 09:18 IMPRESSION: No acute pulmonary embolus. No acute abnormality in the chest. Medial left basilar atelectasis. RECOMMENDATIONS: 2.0 mm solid pulmonary nodule within the upper lobe. If patient is low risk for malignancy, no routine follow-up imaging is recommended; if patient is high risk for malignancy, a non-contrast Chest CT at 12 months is optional. If performed and the nodule is stable at 12 months, no further follow-up is recommended. These guidelines do not apply to patients younger than 35 years, immunocompromised patients, and patients with cancer. Follow up in patients with significant comorbidities as clinically warranted. Reference: Radiology. 2017; 284(1):228-43. D/ / Juwan Toro MD / Juwan Toro MD Interpreting Provider: Juwan Toro MD Intake & Output 10/11/18 10/12/18 10/13/18 10/14/18 23:59 23:59 23:59 23:59 Intake Total 3292.7 / 3292.7 1928 / 1928 Output Total 50 / 50 525 / 525 Balance 3242.7 / 3242.7 1403 / 1403 Weight 87.09 kg Active Medications Acetaminophen (Tylenol) 650 mg PO Q6H PRN PRN Reason: Fever Stop: 04/14/19 22:10 Last Admin: 10/13/18 23:06 Dose: 650 mg Documented by: Amlodipine Besylate (Norvasc) 10 mg PO DAILY BRITTANY Stop: 04/15/19 09:01 Last Admin: 10/14/18 08:36 Dose: 10 mg Documented by: Dextrose/Water (Dextrose 50% (Syg)) 50 ml IVP ONCE PRN PRN Reason: Hypoglycemia Stop: 04/14/19 08:05 Dextrose/Water (Dextrose 50% (Syg)) 25 ml IVP [id number] PRN PRN Reason: Hypoglycemia Stop: 04/14/19 09:06 Dextrose/Water (Dextrose 50% (Syg)) 25 ml IVP AD PRN PRN Reason: Hypoglycemia Stop: 04/15/19 05:13 Duloxetine HCl (Cymbalta) 60 mg PO HS BRITTANY Stop: 04/14/19 21:01 Last Admin: 10/14/18 00:51 Dose: Not Given Documented by: Glucagon (Glucagen) 1 mg IM ONCE PRN PRN Reason: Hypoglycemia Stop: 04/15/19 05:13 Glucose (Gluctose) 15 gm PO ONCE PRN PRN Reason: Hypoglycemia Stop: 04/15/19 05:13 Glucose (Gluctose) 30 gm PO ONCE PRN PRN Reason: Hypoglycemia Stop: 04/15/19 05:13 Heparin Sodium (Porcine) (Heparin) 5,000 unit SQ Q12HCO [facility] Stop: 04/14/19 18:01 Last Admin: 10/14/18 06:08 Dose: 5,000 unit Documented by: Hydrochlorothiazide (Hydrochlorothiazide) 12.5 mg PO DAILY [facility] Stop: 04/15/19 09:01 Last Admin: 10/14/18 08:36 Dose: 12.5 mg Documented by: Calcium Gluconate (Calcium Gluconate 1gm/50ml) 1 gm in 50 mls @ 50 mls/hr IVPB Q6HR PRN PRN Reason: Hypocalcemia Stop: 04/14/19 21:24 Magnesium Sulfate 2 gm/ Sodium (Chloride) 104 mls @ 52 mls/hr IVPB Q6H PRN PRN Reason: hypomagnesemia Stop: 04/14/19 21:24 Last Infusion: 10/14/18 10:42 Dose: Infused Documented by: Potassium Chloride (Potassium Chloride 10 Meq/100ml) 10 meq in 100 mls @ 100 mls/hr IVPB Q1H PRN PRN Reason: Potassium less than 4 Stop: 04/14/19 21:24 Sodium Phosphate 30 mmol/ (Sodium Chloride) 260 mls @ 42 mls/hr IVPB Q12H PRN PRN Reason: Hypophosphatemia Stop: 04/14/19 21:24 Last Admin: 10/14/18 10:43 Dose: 42 mls/hr Documented by: Cefepime HCl 1,000 mg/ Sterile (Water) 10 mls @ 300 mls/hr IVPB Q12HR [facility] Stop: 04/15/19 06:01 Last Admin: 10/14/18 05:48 Dose: 300 mls/hr Documented by: Dextrose (Dextrose 5%) 1,000 mls @ 100 mls/hr IVC .Q10H PRN PRN Reason: HYPOGLYCEMIA Stop: 04/15/19 05:13 Insulin Human Lispro (Humalog) 0 units SQ TIDAC [facility]; Protocol Stop: 04/15/19 07:31 Last Admin: 10/14/18 08:37 Dose: 4 unit Documented by: Insulin Human Lispro (Humalog) 0 units SQ HS [facility]; Protocol Stop: 04/15/19 21:01 Insulin Human Regular (Humulin R) 5 unit IV ONCE PRN PRN Reason: SEE COMMENTS Stop: 04/14/19 09:06 Loratadine (Claritin) 10 mg PO DAILY [facility] Stop: 04/15/19 09:01 Last Admin: 10/14/18 08:36 Dose: 10 mg Documented by: Losartan Potassium (Cozaar) 100 mg PO DAILY [facility] Stop: 04/15/19 09:01 Last Admin: 10/14/18 08:36 Dose: 100 mg Documented by: Montelukast Sodium (Singulair) 10 mg PO DAILY [facility] Stop: 04/15/19 09:01 Last Admin: 10/14/18 08:37 Dose: 10 mg Documented by: Naloxone HCl (Narcan) 0.4 mg IVP Q2MPRN PRN PRN Reason: SEE COMMENTS Stop: 04/14/19 10:25 Ondansetron HCl (Zofran) 4 mg IVP Q8HR PRN PRN Reason: Nausea And Vomiting Stop: 04/14/19 10:25 Last Admin: 10/14/18 03:45 Dose: 4 mg Documented by: Potassium Chloride (Potassium Chloride) 40 meq PO DAILY PRN PRN Reason: Hypokalemia Stop: 04/14/19 21:24 Last Admin: 10/14/18 08:37 Dose: 40 meq Documented by: - Imaging and Cardiology Echo: report reviewed - EKG Interpretation EKG results cardiology: personally reviewed, normal ECG, sinus rhythm, no diagnostic ischemia Consult Discharge Plan - Plan Referrals: Ghulam Hernandez DO [Primary Care Provider] - 10/20/18 1:00 pm
[2018-10-14 15:34] LABS: VBG HCO3 18 mEq/L (21-27); VBG PCO2 46 mmHg (41-51); VBG PO2 38 mmHg (25-50)
--- NOTE | 2018-10-14 16:00 | Electrocardiograph Report ---
[address] [place], [place] [address] Test Date: 2018-10-14 Pat Name: Mary Lauren Department: 110 Room: 2N08 Gender: F [place] A Driver: : [id number] Requested By: Jaden Contreras Order Number: [id number] Reading MD: Misael Villalobos Measurements Intervals [place] Rate: 126 P: 33 TN: 151 QRS: -14 QRSD: 90 T: 28 QT: 356 QTc: 431 Interpretive Statements SINUS TACHYCARDIA LOW QRS VOLTAGE IN PRECORDIAL LEADS PROB ANTEROSEPTAL MYOCARDIAL INFARCTIO, OF INDETERMINATE AGE Electronically Signed On 10-14-2018 15:59:32 EDT by Misael Villalobos
[2018-10-14] MEDS: Acetaminophen 325 MG TABLET PO PRN (17:03)
[2018-10-14] MEDS ORDERED: Insulin LISPRO 300 UNITS/3 ML VIAL SQ SCH (21:00)
[2018-10-15] MEDS ORDERED: Dextromethorphan Polistrx(12h) 30 MG/5 ML UDC PO PRN (00:17)
[2018-10-15] MEDS ORDERED: traMADol 50 MG TABLET PO ONE (00:18)
[2018-10-15 01:54] LABS: Mean Corpuscular HGB Conc 33.3 g/dL (31.6-35.5); Mean Platelet Volume 11.1 fL (9.4-12.4); Platelet Count 139 K/mcL (140-400); Red Blood Count 3.45 M/mcL (3.82-4.97); Red Cell Distribution Width 15.4 % (11.5-14.5); White Blood Count 5.3 K/mcL (4.3-11.1)
[2018-10-15 02:14] LABS: Alanine Aminotransferase 11 Units/L (7-52); Albumin/Globulin Ratio 1.3 (1.1-2.2); Alkaline Phosphatase 65 Units/L (34-104); Aspartate Amino Transferase 18 Units/L (13-39); BUN/Creatinine Ratio 20 (6-26); Bilirubin,Total 0.5 mg/dL (0.3-1.0); Blood Urea Nitrogen 12 mg/dL (8-23); Calcium 8.2 mg/dL (8.6-10.3); Carbon Dioxide 17 mEq/L (23-29); Chloride 105 mEq/L (98-107); Globulin 2.4 g/dL (2.4-3.5); Glucose 220 mg/dL (70-105); Magnesium 1.8 mg/dL (1.6-2.6); Osmolality,Calculated 281 (280-300); Phosphorous 1.8 mg/dL (2.7-4.5); Potassium 3.6 mEq/L (3.5-5.1); Sodium 132 mEq/L (136-145); Total Protein 5.4 g/dL (6.4-8.9); eGFR For African Americans > 60 (> 60); eGFR For Non-African Americans > 60 (> 60)
[2018-10-15 02:46] LABS: Lymphocytes # 0.9 K/mcL (0.6-4.6)
[2018-10-15 02:48] LABS: Monocytes # 0.4 K/mcL (0.0-1.3)
[2018-10-15 02:49] LABS: Platelet Estimate Normal (Normal)
[2018-10-15] MEDS: Cefepime HCl 1,000 MG in Water for inj. (sterile) 10 ML IVPB SCH ×2 (06:25→17:40)
[2018-10-15] MEDS: *HR* Heparin 5,000 UNIT/ML VIAL SQ SCH ×2 (06:26→17:41)
[2018-10-15] MEDS: amLODIPine 5 MG TABLET PO SCH (09:21)
[2018-10-15] MEDS: Loratadine 10 MG TABLET PO SCH (09:21)
[2018-10-15] MEDS: hydroCHLOROthiazide 25 MG TABLET PO SCH (09:21)
--- NOTE | 2018-10-15 10:35 | Internal Med Progress Note ---
Hospitalist Progress Note - Encounter Date of Encounter: 10/15/18 Time of Encounter: 10:31 - Subjective Interval History: Patient seen and examined with present at bedside. Pt sitting in bed and saturating 96% on 2L NC. I brought down to 1L nasal cannula, and patient continued to saturate 96%. Pt states she feels weak but significantly better compared to previous day. Denies any headache, sob, chest pain, abd pain,n/v, fever or chills. States she was diagnosed with DM one week prior to hospitalization. Extensive diabetic education was provided. Pt is frail at this time and requiring assistance to get out of bed to chair. Will obtain PT eval in am, as pt is improving on a daily basis. RN requested to get the patient out of bed. Ten point ROS is negative except as listed above. - Exam Vitals: Temp Pulse Resp BP Pulse Ox 98.5 F 90 16 110/64 96 10/15/18 07:08 10/15/18 07:08 10/15/18 07:08 10/15/18 07:08 10/15/18 07:08 Exam: General: AAO x 3,no acute distress, fatigued, morbidly obese HEENT: EOMI, NC/AT, no scleral icterus Respiratory: No rales, equal air entry bilaterally, no wheezing Cardiovascular: Sinus rhythm, tachycardia present, no murmurs GI: Soft, Non tender, non distended, normal bowel sounds Ext: No edema, no tenderness, positive pulses Neuro: AAO x 3, no focal deficits Rest of the clinical exam is noncontributory - Summary of Assessment and Plan Summary of Assessment and Plan: Patient is a 63y/o female with PMH of DM type II, hypertension, hyperlipidemia, hypothyroidism, obesity who is admitted for DKA. Assessment/Plan 1. Sepsis with bacteremia likely secondary to UTI Sepsis resolved clinically improving 1/2 bottle of blood culture reporting gram negative elidia urine culture reporting gram negative elidia f/u repeat blood cultures continue IV Abx at this time (Cefepime) tylenol prn fever will closely monitor 2. Acute respiratory distress with hypoxia likely secondary to volume overload given the fluid resuscitation required for treatment of DKA, however given tachycardia, tachypnea, and hypoxia, will obtain CTA chest to rule out PE One time dose of Lasix 20mg IV was given on 10/14/18 Responded well on lasix therapy CTA chest negative for PE currently on 1LNC, titrate off O2 supplementation to maintain O2 saturation > 94% continue O2 supplementation as needed closely monitor respiratory status 3. Diabetic ketoacidosis likely secondary to underlying infection DKA resolved pt started on basal and sliding scale insulin coverage tolerating PO intake will closely monitor BG 4. Normal anion gap metabolic acidosis likely secondary to underlying infectious etiology and DKA continue PO bicarb supplementation will closely monitor 5. Lactic acidosis likely secondary to acute respiratory distress with hypoxia resolved 6. Elevated TNI likely demand ischemia in the setting of DKA/bacteremia/Acute respiratory distress with hypoxia will closely monitor serial TNI no chest pain reported at this time cardiology input appreciated 2D echo reviewed outpatient cardiology follow up recommended. 7. Uncontrolled Diabetes Mellitus HbA1C on 10/05/18: 16.3 continue basal and sliding scale insulin coverage increased to medium dose insulin algorithm due to hyperglycemia pt reported of not being on any insulin as outpatient will need Insulin support on discharge will obtain natural resources extension educator evaluation nutrition evaluation will closely monitor BG and FS glucose ADA diet 8. Electrolyte abnormality currently on electrolyte protocol Hyponatremia, Hypophosphatemia: NaPhos supplemented will closely monitor electrolytes and replace as needed 9. Hx of HTN BP within acceptable range continue home medications closely monitor BP DVT ppx: Heparin SQ Care plan discussed with patient/Family/RN/pharmacist/case management. - Time Spent with Patient Total time spent is greater than 50% in coordination of care (as documented) at patient's floor/unit and/or counseling patient: Internal Medicine: Result - Labs CBC & Chem 7: 10/15/18 01:13 10/15/18 01:13 Labs: Short CBC 10/15/18 Range/Units 01:13 WBC 5.3 (4.3-11.1) K/mcL Hgb 10.0 L D (11.5-15.4) g/dL Hct 30.0 L (35.3-44.9) % Plt Count 139 L (140-400) K/mcL Neutrophils # 4.0 (1.6-8.9) K/mcL BMP 10/15/18 01:13 Sodium 132 L Potassium 3.6 Chloride 105 Carbon Dioxide 17 L BUN 12 Creatinine 0.60 Glucose 220 H Calcium 8.2 L Liver Function 10/15/18 Range/Units 01:13 Total Bilirubin 0.5 (0.3-1.0) mg/dL AST 18 (13-39) Units/L ALT 11 (7-52) Units/L Alkaline Phosphatase 65 (34-104) Units/L Albumin 3.0 L (3.5-5.7) g/dL - ABG Interpretation ABG results: ABG ABG pH 7.24 pH Units (7.32-7.45) L 10/14/18 04:08 ABG pCO2 28 mmHg (35-45) L 10/14/18 04:08 ABG pO2 54 mmHg (85-104) L 10/14/18 04:08 ABG O2 Saturation 83 % (95-98) L 10/14/18 04:08 - Impressions Impressions Chest CTA 10/14/18 09:18 IMPRESSION: No acute pulmonary embolus. No acute abnormality in the chest. Medial left basilar atelectasis. RECOMMENDATIONS: 2.0 mm solid pulmonary nodule within the upper lobe. If patient is low risk for malignancy, no routine follow-up imaging is recommended; if patient is high risk for malignancy, a non-contrast Chest CT at 12 months is optional. If performed and the nodule is stable at 12 months, no further follow-up is recommended. These guidelines do not apply to patients younger than 35 years, immunocompromised patients, and patients with cancer. Follow up in patients with significant comorbidities as clinically warranted. Reference: Radiology. 2017; 284(1):228-43. D/ / Juwan Toro MD / Juwan Toro MD Interpreting Provider: Juwan Toro MD Echocardiogram 10/14/18 09:59 Impressions: LVEF 60-65%. Mild left ventricular diastolic dysfunction. Mild right ventricular dilatation with normal function. Mild mitral regurgitation. Mild tricuspid regurgitation. No pulmonary hypertension. Left Ventricular Wall Motion: Rest Echo Findings All wall segments showed normal motion. Findings: Study Quality * Technically adequate exam. ECG Findings * Normal sinus rhythm. Left Ventricle * LVEF 60-65%. * Normal LV chamber size, wall thickness and systolic function. * Basal sigmoid septum. * Mild left ventricular diastolic dysfunction. Right Ventricle * Mild right ventricular dilatation structure with normal function. Left Atrium * Normal left atrial size. Right Atrium * Normal right atrial size. Interatrial Septum * Interatrial septum not well evaluated. * No evidence of PFO by color Doppler. Aortic Valve * Trileaflet aortic valve. * No aortic stenosis. * No aortic regurgitation. Mitral Valve * Normal mitral valve structure. * No mitral stenosis. * Mild mitral regurgitation. Tricuspid Valve * Normal tricuspid valve structure. * No tricuspid stenosis. * Mild tricuspid regurgitation. * Estimated RVSP is 32 mmHg. * Estimated RA pressure is 8 mmHg. * No pulmonary hypertension. Pulmonic Valve * Pulmonic valve is not well visualized. * No pulmonic stenosis. * No pulmonic regurgitation. Aorta * Normally sized aortic root. Pericardium * The pericardium appears normal. IVC * The IVC is dilated. * > 50% respiratory change Consult Discharge Plan - Plan Referrals: Ghulam Hernandez DO [Primary Care Provider] - 10/20/18 1:00 pm
[2018-10-15] MEDS: Insulin LISPRO 300 UNITS/3 ML VIAL SQ SCH ×3 (12:46→20:34)
[2018-10-15] MEDS: Insulin DETEMIR 100 UNIT/ML X5UNITS SQ SCH (14:01)
[2018-10-16 02:25] LABS: Basophils % 0.2 %; Eosinophils # 0.1 K/mcL (0.0-0.6); Eosinophils % 1.7 %; Hematocrit 30.9 % (35.3-44.9); Immature Granulocytes % 0.4 % (0-4); Lymphocytes # 0.9 K/mcL (0.6-4.6); Lymphocytes % 19.2 %; Mean Corpuscular HGB Conc 32.4 g/dL (31.6-35.5); Mean Corpuscular Volume 86.6 fL (83.0-100.0); Mean Platelet Volume 11.8 fL (9.4-12.4); Monocytes # 0.6 K/mcL (0.0-1.3); Platelet Count 163 K/mcL (140-400); Red Blood Count 3.57 M/mcL (3.82-4.97); Red Cell Distribution Width 15.1 % (11.5-14.5); Segmented Neutrophils % 66.5 %; White Blood Count 4.6 K/mcL (4.3-11.1)
[2018-10-16 02:31] LABS: Neutrophils # 3.1 K/mcL (1.6-8.9)
[2018-10-16 02:46] LABS: BUN/Creatinine Ratio 15 (6-26); Blood Urea Nitrogen 8 mg/dL (8-23); Calcium 8.4 mg/dL (8.6-10.3); Carbon Dioxide 21 mEq/L (23-29); Chloride 103 mEq/L (98-107); Glucose 188 mg/dL (70-105); Magnesium 1.9 mg/dL (1.6-2.6); Osmolality,Calculated 283 (280-300); Potassium 3.2 mEq/L (3.5-5.1); Sodium 135 mEq/L (136-145); eGFR For African Americans > 60 (> 60); eGFR For Non-African Americans > 60 (> 60)
[2018-10-16 03:06] LABS: Platelet Estimate Normal (Normal); Reactive Lymphocytes Present (Not Present)
[2018-10-16] MEDS: *HR* Heparin 5,000 UNIT/ML VIAL SQ SCH ×2 (04:15→17:26)
[2018-10-16] MEDS: Cefepime HCl 1,000 MG in Water for inj. (sterile) 10 ML IVPB SCH ×2 (04:15→17:26)
[2018-10-16] MEDS: hydroCHLOROthiazide 25 MG TABLET PO SCH (10:16)
[2018-10-16] MEDS: Loratadine 10 MG TABLET PO SCH (10:17)
[2018-10-16] MEDS: amLODIPine 5 MG TABLET PO SCH (10:19)
[2018-10-16] MEDS: Insulin DETEMIR 100 UNIT/ML X5UNITS SQ SCH (10:20)
[2018-10-16] MEDS: Insulin LISPRO 300 UNITS/3 ML VIAL SQ SCH ×4 (10:20→20:49)
[2018-10-16] MEDS ORDERED: Insulin DETEMIR 100 UNIT/ML X5UNITS SQ ONE (12:51)
--- NOTE | 2018-10-16 12:55 | Internal Med Progress Note ---
Hospitalist Progress Note - Encounter Date of Encounter: 10/16/18 Time of Encounter: 12:51 - Subjective Interval History: Patient seen and examined with present at bedside. Pt was on 1L NC and saturating 98%. Nasal cannula removed and patient continued to saturate well on room air. She reports of feeling better compared to previous day. Has more energy but reports of two loose BM this morning, states she has not had a bowel movement in the last few days, so she feels better after the BM this morning. No sob, chest pain reported. Pt sitting on the side of the bed without any discomfort. Ten point ROS is negative except as listed above PT eval requested - Exam Vitals: Temp Pulse Resp BP Pulse Ox 98.3 F 89 18 117/74 96 10/16/18 12:01 10/16/18 12:10/16/18 12:01 10/16/18 12:10/16/18 12:01 Exam: General: AAO x 3,no acute distress, morbidly obese HEENT: EOMI, NC/AT, no scleral icterus Respiratory: No rales, equal air entry bilaterally, no wheezing Cardiovascular: Sinus rhythm, normal rate, no murmurs GI: Soft, Non tender, non distended, normal bowel sounds Ext: No edema, no tenderness, positive pulses Neuro: AAO x 3, no focal deficits Rest of the clinical exam is noncontributory - Summary of Assessment and Plan Summary of Assessment and Plan: Patient is a 63y/o female with PMH of DM type II, hypertension, hyperlipidemia, hypothyroidism, obesity who is admitted for DKA. Assessment/Plan 1. Sepsis with bacteremia likely secondary to UTI Sepsis resolved clinically improving 1/2 bottle of blood culture reporting gram negative elidia, E.coli urine culture reporting gram negative elidia repeat Blood cultures negative thus far continue IV Abx at this time (Cefepime) tylenol prn fever will closely monitor 2. Acute respiratory distress with hypoxia likely secondary to volume overload given the fluid resuscitation required for treatment of DKA, however given tachycardia, tachypnea, and hypoxia, will obtain CTA chest to rule out PE One time dose of Lasix 20mg IV was given on 10/14/18 resolved saturating well on room air at this time will closely monitor 3. Diabetic ketoacidosis likely secondary to underlying infection DKA resolved pt started on basal and sliding scale insulin coverage tolerating PO intake will closely monitor BG 4. Normal anion gap metabolic acidosis likely secondary to underlying infectious etiology and DKA continue PO bicarb supplementation improving will closely monitor 5. Lactic acidosis likely secondary to acute respiratory distress with hypoxia resolved 6. Elevated TNI likely demand ischemia in the setting of DKA/bacteremia/Acute respiratory distress with hypoxia will closely monitor serial TNI no chest pain reported at this time cardiology input appreciated 2D echo reviewed outpatient cardiology follow up recommended. 7. Uncontrolled Diabetes Mellitus HbA1C on 10/05/18: 16.3 continue basal and sliding scale insulin coverage increased basal insulin to Levemir 20units SQ daily continue medium dose insulin sliding scale algorithm pt reported of not being on any insulin as outpatient will need Insulin support on discharge will closely monitor BG and FS glucose ADA diet 8. Electrolyte abnormality currently on electrolyte protocol Hypokalemia: K supplemented Hyponatremia, Hypophosphatemia: NaPhos supplemented will closely monitor electrolytes and replace as needed 9. Hx of HTN BP within acceptable range continue home medications closely monitor BP DVT ppx: Heparin SQ Care plan discussed with patient/Family/RN - Time Spent with Patient Total time spent is greater than 50% in coordination of care (as documented) at patient's floor/unit and/or counseling patient: Internal Medicine: Result - Labs CBC & Chem 7: 10/16/18 01:08 10/16/18 01:08 Labs: Short CBC 10/16/18 Range/Units 01:08 WBC 4.6 (4.3-11.1) K/mcL Hgb 10.0 L (11.5-15.4) g/dL Hct 30.9 L (35.3-44.9) % Plt Count 163 (140-400) K/mcL Neutrophils # 3.1 (1.6-8.9) K/mcL BMP 10/16/18 01:08 Sodium 135 L Potassium 3.2 L Chloride 103 Carbon Dioxide 21 L BUN 8 Creatinine 0.55 L Glucose 188 H Calcium 8.4 L - ABG Interpretation ABG results: ABG ABG pH 7.24 pH Units (7.32-7.45) L 10/14/18 04:08 ABG pCO2 28 mmHg (35-45) L 10/14/18 04:08 ABG pO2 54 mmHg (85-104) L 10/14/18 04:08 ABG O2 Saturation 83 % (95-98) L 10/14/18 04:08 Consult Discharge Plan - Plan Referrals: Ghulam Hernandez DO [Primary Care Provider] - 10/20/18 1:00 pm
[2018-10-16] MEDS: Acetaminophen 325 MG TABLET PO PRN (22:06)
[2018-10-17 04:01] LABS: Basophils % 0.6 %; Eosinophils # 0.1 K/mcL (0.0-0.6); Eosinophils % 2.6 %; Hematocrit 29.8 % (35.3-44.9); Hemoglobin 9.7 g/dL (11.5-15.4); Immature Granulocytes % 1.1 % (0-4); Lymphocytes # 1.1 K/mcL (0.6-4.6); Lymphocytes % 31.9 %; Mean Corpuscular HGB Conc 32.6 g/dL (31.6-35.5); Mean Corpuscular Hemoglobin 28.2 pg (28.0-33.3); Mean Corpuscular Volume 86.6 fL (83.0-100.0); Mean Platelet Volume 10.6 fL (9.4-12.4); Monocytes # 0.5 K/mcL (0.0-1.3); Monocytes % 12.9 %; Neutrophils # 1.8 K/mcL (1.6-8.9); Platelet Count 172 K/mcL (140-400); Red Blood Count 3.44 M/mcL (3.82-4.97); Red Cell Distribution Width 14.9 % (11.5-14.5); Segmented Neutrophils % 50.9 %; White Blood Count 3.5 K/mcL (4.3-11.1)
[2018-10-17 04:04] LABS: BUN/Creatinine Ratio 11 (6-26); Blood Urea Nitrogen 6 mg/dL (8-23); Calcium 8.6 mg/dL (8.6-10.3); Carbon Dioxide 23 mEq/L (23-29); Chloride 106 mEq/L (98-107); Glucose 190 mg/dL (70-105); Magnesium 1.7 mg/dL (1.6-2.6); Osmolality,Calculated 289 (280-300); Phosphorous 2.2 mg/dL (2.7-4.5); Potassium 3.2 mEq/L (3.5-5.1); Sodium 138 mEq/L (136-145); eGFR For African Americans > 60 (> 60); eGFR For Non-African Americans > 60 (> 60)
[2018-10-17] MEDS: Cefepime HCl 1,000 MG in Water for inj. (sterile) 10 ML IVPB SCH (06:03)
[2018-10-17] MEDS: *HR* Heparin 5,000 UNIT/ML VIAL SQ SCH ×2 (06:03→17:44)
[2018-10-17] MEDS ORDERED: Insulin DETEMIR 100 UNIT/ML X5UNITS SQ SCH (09:00)
[2018-10-17] MEDS: cefTRIAXone 1,000 MG in Water for inj. (sterile) 10 ML IVP SCH (10:53)
[2018-10-17] MEDS: Insulin LISPRO 300 UNITS/3 ML VIAL SQ SCH ×6 (10:53→21:25)
[2018-10-17] MEDS: hydroCHLOROthiazide 25 MG TABLET PO SCH (10:55)
[2018-10-17] MEDS: Loratadine 10 MG TABLET PO SCH (10:55)
[2018-10-17] MEDS: amLODIPine 5 MG TABLET PO SCH (10:55)
[2018-10-17] MEDS ORDERED: Insulin DETEMIR 100 UNIT/ML X5UNITS SQ ONE (11:15)
--- NOTE | 2018-10-17 11:19 | Internal Med Progress Note ---
Hospitalist Progress Note - Encounter Date of Encounter: 10/17/18 Time of Encounter: 11:17 - Subjective Interval History: Patient seen and examined with present at bedside. Pt is requiring assistance to get out of bed to chair. She reports of feeling weak and having multiple loose BM since yesterday. She wishes to be discharged to home today. She denies any shortness of breath, chest pain, abd pain,n/v, fever, or chills. Extensive discussion was held with the patient in regards to her current treatment plan and the need to stay in the hospital. She states she will think about it but states she might leave against medical advise. Ten point ROS is negative except as listed above - Exam Vitals: Temp Pulse Resp BP Pulse Ox 97.7 F 75 1 139/80 100 10/17/18 07:43 10/17/18 07:43 10/17/18 07:43 10/17/18 07:43 10/17/18 07:43 Exam: General: AAO x 3,no acute distress, morbidly obese HEENT: EOMI, NC/AT, no scleral icterus Respiratory: No rales, equal air entry bilaterally, no wheezing Cardiovascular: Sinus rhythm, normal rate, no murmurs GI: Soft, Non tender, non distended, normal bowel sounds Ext: No edema, no tenderness, positive pulses Neuro: AAO x 3, no focal deficits Rest of the clinical exam is noncontributory - Summary of Assessment and Plan Summary of Assessment and Plan: Patient is a 63y/o female with PMH of DM type II, hypertension, hyperlipidemia, hypothyroidism, obesity who is admitted for DKA. Assessment/Plan 1. Sepsis with bacteremia likely secondary to UTI Sepsis resolved clinically improving 1/2 bottle of blood culture reporting E.coli urine culture reporting gram negative elidia repeat Blood cultures negative thus far continue IV Abx at this time ( discontinue IV Cefepime, can start Ceftriaxone IV, will treat for a total of 10 days, day 08/04) tylenol prn fever will closely monitor 2. Acute respiratory distress with hypoxia likely secondary to volume overload given the fluid resuscitation required for treatment of DKA resolved saturating well on room air at this time will closely monitor 3. Diabetic ketoacidosis likely secondary to underlying infection DKA resolved tolerating PO intake will closely monitor BG 4. Normal anion gap metabolic acidosis likely secondary to underlying infectious etiology and DKA resolved will closely monitor 5. Lactic acidosis likely secondary to acute respiratory distress with hypoxia resolved 6. Elevated TNI likely demand ischemia in the setting of DKA/bacteremia/Acute respiratory distress with hypoxia will closely monitor serial TNI no chest pain reported at this time cardiology input appreciated 2D echo reviewed outpatient cardiology follow up recommended. 7. Uncontrolled Diabetes Mellitus HbA1C on 10/05/18: 16.3 continue basal and sliding scale insulin coverage remains hyperglycemic increased Levemir to 30units SQ daily and added 5 units humalog TIDAC based on the additional insulin requirements in the last 24 hours continue medium dose insulin sliding scale algorithm pt reported of not being on any insulin as outpatient will need Insulin support on discharge will closely monitor BG and FS glucose ADA diet 8. Electrolyte abnormality currently on electrolyte protocol Hypokalemia: K supplemented Hyponatremia, Hypophosphatemia: NaPhos supplemented will closely monitor electrolytes and replace as needed 9. Hx of HTN BP within acceptable range continue home medications closely monitor BP 10. Diarrhea f/u stool studies for C-diff persistent diarrhea is likely contributing to the electrolyte abnormalities 11. Acute anemia gradual decline in H&H on a daily basis will send stool occult f/u iron studies, ferritin, B12, folate will closely monitor H&H Awaiting Physical therapy evaluation DVT ppx: Heparin SQ Care plan discussed with patient/Family/RN - Time Spent with Patient Total time spent is greater than 50% in coordination of care (as documented) at patient's floor/unit and/or counseling patient: Internal Medicine: Result - Labs CBC & Chem 7: 10/17/18 03:13 10/17/18 03:13 Labs: Short CBC 10/17/18 Range/Units 03:13 WBC 3.5 L (4.3-11.1) K/mcL Hgb 9.7 L (11.5-15.4) g/dL Hct 29.8 L (35.3-44.9) % Plt Count 172 (140-400) K/mcL Neutrophils # 1.8 (1.6-8.9) K/mcL BMP 10/17/18 03:13 Sodium 138 Potassium 3.2 L Chloride 106 Carbon Dioxide 23 BUN 6 L Creatinine 0.54 L Glucose 190 H Calcium 8.6 - ABG Interpretation ABG results: ABG ABG pH 7.24 pH Units (7.32-7.45) L 10/14/18 04:08 ABG pCO2 28 mmHg (35-45) L 10/14/18 04:08 ABG pO2 54 mmHg (85-104) L 10/14/18 04:08 ABG O2 Saturation 83 % (95-98) L 10/14/18 04:08 Consult Discharge Plan - Plan Referrals: Ghulam Hernandez DO [Primary Care Provider] - 10/20/18 1:00 pm
[2018-10-17] MEDS: Vancomycin Oral Soln 125 MG/2.5 ML UDC PO SCH ×3 (15:22→21:29)
[2018-10-17] MEDS: MetroNIDAZOLE 500 MG/100 ML 500 MG/100 ML BAG IVPB SCH ×2 (16:15→16:24)
[2018-10-17] MEDS ORDERED: Ketorolac 30 MG/ML VIAL IVP ONE (17:25)
[2018-10-17 21:19] LABS: BUN/Creatinine Ratio 10 (6-26); Blood Urea Nitrogen 6 mg/dL (8-23); Carbon Dioxide 23 mEq/L (23-29); Chloride 105 mEq/L (98-107); Glucose 145 mg/dL (70-105); Magnesium 1.8 mg/dL (1.6-2.6); Osmolality,Calculated 286 (280-300); Phosphorous 3.2 mg/dL (2.7-4.5); Potassium 3.6 mEq/L (3.5-5.1); Sodium 138 mEq/L (136-145); eGFR For African Americans > 60 (> 60); eGFR For Non-African Americans > 60 (> 60)
[2018-10-18] MEDS: MetroNIDAZOLE 500 MG/100 ML 500 MG/100 ML BAG IVPB SCH ×2 (00:49→07:42)
[2018-10-18 05:20] LABS: Basophils % 0.8 %; Eosinophils # 0.1 K/mcL (0.0-0.6); Eosinophils % 3.2 %; Hematocrit 30.8 % (35.3-44.9); Hemoglobin 10.1 g/dL (11.5-15.4); Immature Granulocytes % 2.7 % (0-4); Lymphocytes % 33.6 %; Mean Corpuscular HGB Conc 32.8 g/dL (31.6-35.5); Mean Corpuscular Hemoglobin 28.4 pg (28.0-33.3); Mean Corpuscular Volume 86.5 fL (83.0-100.0); Mean Platelet Volume 10.2 fL (9.4-12.4); Monocytes # 0.5 K/mcL (0.0-1.3); Neutrophils # 1.7 K/mcL (1.6-8.9); Platelet Count 192 K/mcL (140-400); Red Blood Count 3.56 M/mcL (3.82-4.97); Red Cell Distribution Width 14.9 % (11.5-14.5); Segmented Neutrophils % 45.7 %; White Blood Count 3.7 K/mcL (4.3-11.1)
[2018-10-18 05:33] LABS: Lymphocytes # 1.2 K/mcL (0.6-4.6)
[2018-10-18 05:40] LABS: BUN/Creatinine Ratio 11 (6-26); Blood Urea Nitrogen 6 mg/dL (8-23); Calcium 8.9 mg/dL (8.6-10.3); Carbon Dioxide 23 mEq/L (23-29); Chloride 106 mEq/L (98-107); Glucose 157 mg/dL (70-105); Magnesium 2.1 mg/dL (1.6-2.6); Osmolality,Calculated 291 (280-300); Potassium 3.7 mEq/L (3.5-5.1); Sodium 140 mEq/L (136-145); Transferrin 172 mg/dL (203-362); eGFR For African Americans > 60 (> 60); eGFR For Non-African Americans > 60 (> 60)
[2018-10-18 05:57] LABS: Ferritin 138 ng/mL (10-120); Platelet Estimate Normal (Normal)
[2018-10-18 06:00] LABS: % Iron Saturation 16 % (15-50); Iron 39 mcg/dL (50-170)
[2018-10-18 06:05] LABS: Folate > 22.3 ng/mL (3.0-16.0); Vitamin B12 348 pg/mL (250-1100)
[2018-10-18] MEDS: *HR* Heparin 5,000 UNIT/ML VIAL SQ SCH ×2 (06:32→18:31)
[2018-10-18] MEDS: Loratadine 10 MG TABLET PO SCH (07:40)
[2018-10-18] MEDS: amLODIPine 5 MG TABLET PO SCH (07:40)
[2018-10-18] MEDS: hydroCHLOROthiazide 25 MG TABLET PO SCH (07:40)
[2018-10-18] MEDS: cefTRIAXone 1,000 MG in Water for inj. (sterile) 10 ML IVP SCH (07:41)
[2018-10-18] MEDS: Vancomycin Oral Soln 125 MG/2.5 ML UDC PO SCH ×3 (07:42→18:29)
[2018-10-18] MEDS: Insulin LISPRO 300 UNITS/3 ML VIAL SQ SCH ×6 (07:48→18:27)
[2018-10-18] MEDS ORDERED: Insulin DETEMIR 100 UNIT/ML X5UNITS SQ SCH (09:00)
--- NOTE | 2018-10-18 12:33 | Internal Med Progress Note ---
Hospitalist Progress Note - Encounter Date of Encounter: 10/18/18 Time of Encounter: 08:20 - Subjective Interval History: eva as seen and examined at bedside. all questions answered. at bedside. she reports that she could not sleep well as her ID was beeping. discussed plan of care with her and her . she reports tat her diarrhea has subsided and she only has had one episode of diarrhea this AM. she denies abdominal pain. has had no fever or chills, currenly tolerating PO diet. - Exam Vitals: Temp Pulse Resp BP Pulse Ox 98.1 F 75 18 135/71 80 10/18/18 11:21 10/18/18 11:21 10/18/18 11:21 10/18/18 11:21 10/18/18 11:50 Exam: General: AAO x 3,no acute distress, morbidly obese HEENT: EOMI, NC/AT, no scleral icterus Respiratory: No rales, equal air entry bilaterally, no wheezing Cardiovascular: Sinus rhythm, normal rate, no murmurs GI: Soft, Non tender, non distended, normal bowel sounds Ext: No edema, no tenderness, positive pulses Neuro: AAO x 3, no focal deficits Rest of the clinical exam is noncontributory - Assessment and Plan (1) Sepsis Current Visit: Yes Status: Acute (2) Uncontrolled diabetes mellitus Current Visit: Yes Status: Acute (3) UTI (urinary tract infection) Current Visit: Yes Status: Acute (4) Hypokalemia Current Visit: Yes Status: Acute (5) Hyponatremia Current Visit: Yes Status: Acute (6) Hypophosphatemia Current Visit: Yes Status: Acute (7) C. difficile diarrhea Current Visit: Yes Status: Acute (8) DVT prophylaxis Current Visit: Yes Status: Acute (9) Diabetic ketoacidosis Current Visit: Yes Status: Acute (10) Elevated troponin I measurement Current Visit: Yes Status: Acute (11) HLD (hyperlipidemia) Current Visit: No Status: Chronic (12) HTN (hypertension) Current Visit: No Status: Chronic (13) Obesity Current Visit: No Status: Chronic - Summary of Assessment and Plan Summary of Assessment and Plan: Patient is a 63y/o female with PMH of DM type II, hypertension, hyperlipidemia, hypothyroidism, obesity who is admitted for DKA. patient was admitted on 10/13 and my first encounter with the patient was on 10/18 Assessment/Plan Sepsis with bacteremia likely secondary to UTI Sepsis resolved clinically improving 1/2 bottle of blood culture reporting E.coli urine culture positive for Ecoli repeat Blood cultures negative thus far continue IV Abx at this time ( discontinue IV Cefepime, can start Ceftriaxone IV, will treat for a total of 10 days, day 5) tylenol prn fever will closely monitor Cdif positive continue with oral vancomycin QID ID consulted will follow recommendations. Acute normocytic anemia iron panel, B12 and folate noted- started on iron supplementation. occult blood negative, will carmelita OP colonoscopy once Cdif has resolved. Acute respiratory distress with hypoxia likely secondary to volume overload given the fluid resuscitation required for treatment of DKA resolved saturating well on room air at this time will closely monitor Diabetic ketoacidosis likely secondary to underlying infection DKA resolved tolerating PO intake will closely monitor BG Normal anion gap metabolic acidosis likely secondary to underlying infectious etiology and DKA resolved will closely monitor Lactic acidosis likely secondary to acute respiratory distress with hypoxia resolved Elevated TNI likely demand ischemia in the setting of DKA/bacteremia/Acute respiratory distress with hypoxia will closely monitor serial TNI no chest pain reported at this time cardiology input appreciated 2D echo reviewed outpatient cardiology follow up recommended. Uncontrolled Diabetes Mellitus HbA1C on 10/05/18: 16.3 continue basal and sliding scale insulin coverage remains hyperglycemic Levemir 30units SQ daily and added 5 units humalog TIDAC based on the additional insulin requirements in the last 24 hours continue medium dose insulin sliding scale algorithm pt reported of not being on any insulin as outpatient will need Insulin support on discharge will closely monitor BG and FS glucose ADA diet Diabetic teaching to be performed by nursing staff Electrolyte abnormality hypokalemia resolved, hypophosphatemia resolved HTN continue home medications closely monitor BP Awaiting Physical therapy evaluation DVT ppx: Heparin SQ Care plan discussed with patient/Family/RN - Time Spent with Patient Total time spent is greater than 50% in coordination of care (as documented) at patient's floor/unit and/or counseling patient: 25 - 35 minutes Plan of Care Discussed with: patient Internal Medicine: Result - Labs CBC & Chem 7: 10/18/18 04:50 10/18/18 04:50 Labs: Short CBC 10/18/18 Range/Units 04:50 WBC 3.7 L (4.3-11.1) K/mcL Hgb 10.1 L (11.5-15.4) g/dL Hct 30.8 L (35.3-44.9) % Plt Count 192 (140-400) K/mcL Neutrophils # 1.7 (1.6-8.9) K/mcL BMP 10/17/18 10/18/18 20:43 04:50 Sodium 138 140 Potassium 3.6 3.7 Chloride 105 106 Carbon Dioxide 23 23 BUN 6 L 6 L Creatinine 0.63 0.55 L Glucose 145 H 157 H Calcium 9.0 8.9 - ABG Interpretation ABG results: ABG ABG pH 7.24 pH Units (7.32-7.45) L 10/14/18 04:08 ABG pCO2 28 mmHg (35-45) L 10/14/18 04:08 ABG pO2 54 mmHg (85-104) L 10/14/18 04:08 ABG O2 Saturation 83 % (95-98) L 10/14/18 04:08 Consult Discharge Plan - Plan Referrals: Ghulam Hernandez DO [Primary Care Provider] - 10/20/18 1:00 pm (1) Sepsis Qualifiers: Sepsis type: Escherichia coli Qualified Code(s): A41.51 - Sepsis due to Escherichia coli [E. coli] (2) Uncontrolled diabetes mellitus Qualifiers: Diabetes mellitus type: type 2 Glycemic state: with hyperglycemia Qualified Code(s): E11.65 - Type 2 diabetes mellitus with hyperglycemia (3) UTI (urinary tract infection) Qualifiers: Urinary tract infection type: acute cystitis Hematuria presence: without he maturia Qualified Code(s): N30.00 - Acute cystitis without hematuria (9) Diabetic ketoacidosis Qualifiers: Diabetes mellitus type: type 2 Diabetes mellitus complication detail: without coma Qualified Code(s): E11.10 - Type 2 diabetes mellitus with ketoacidosis without coma (11) HLD (hyperlipidemia) Qualifiers: Hyperlipidemia type: mixed hyperlipidemia Qualified Code(s): E78.2 - Mixed hyperlipidemia (12) HTN (hypertension) Qualifiers: Hypertension type: essential hypertension Qualified Code(s): I10 - Essential (primary) hypertension (13) Obesity Qualifiers: Obesity type: due to excess calories Obesity classification: adult class 1 (BMI 30 - 34.9) Serious obesity comorbidity presence: without serious comorbidity Body mass index: BMI 34.0-34.9 Qualified Code(s): E66.09 - Other obesity due to excess calories; Z68.34 - Body mass index (BMI) 34.0-34.9, adult
--- NOTE | 2018-10-18 16:00 | Infectious Disease Consult ---
Infectious Disease-Consult - Encounter Date/Time Date of Encounter: 10/18/18 Time of Encounter: 15:52 - Data of Consult Patient: new to practice Reason for consult: Gram negative bacteremia, C. diff Consult date: 10/18/18 Requesting Physician: Jo Ann Nieves MD Primary Care Provider: Ghulam Hernandez DO - [facility] HPI: Ms. Lauren is a 63-year-old female with a past medical history of uterine cancer status post total hysterectomy, diabetes, hypertension, and hyperlipidemia. The patient was admitted to the hospital 10/13/18 for DKA, joint pain, and hyperglycemia. We are consulted 10/18/18 for further workup and treatment recommendations for C. difficile and gram-negative bacteremia. Briefly, the patient 63-year-old female with past medical history as stated above. The patient presented to the emergency department with a 2 week history of generalized fatigue and malaise and worsening joint pain. Upon arrival, she was afebrile. She was tachycardic, but was otherwise hemodynamically stable. She had a normal WBC, but had 12% bands. Lactic acid and renal function were normal. Glucose was elevated at 524. Urinalysis was positive for blood, 5-15 white cells, and many epithelial cells. No bacteria was seen, but the culture grew out Escherichia coli that is pansensitive. Troponin was negative. Blood cultures were obtained 2 sets. She was started empirically on IV cefepime and vancomycin and was admitted to the hospital for further evaluation. Shortly after admission, the patient became febrile, tachycardic, and had altered mental status. Chest x-ray was negative. She was noted to be hypoxic so she underwent a CTA of the chest that was negative. She became febrile with a MAXIMUM TEMPERATURE of 101. She had a transthoracic echo that showed an EF of 60-65%. Cardiology was consulted and subsequently signed off. Blood cultures drawn in the emergency department came back +1 out of 2 sets for Escherichia coli 2 different strains. On day 2 of hospitalization, the patient developed diarrhea. She tested positive for C. difficile per the PCR and the EIA. She was transitioned to IV Rocephin and was started on oral vancomycin yesterday. We have been asked to evaluate and make further recommendations. During my exam today, the patient endorses a history as stated above. She states that for the past couple of weeks she has felt generally poor. She was seen by her PCP last week or diagnosed her with type 2 diabetes and started her on oral metformin. She reports subjective chills, but denies any fevers or rigors. Denies any headache or neck pain. Denies chest pain, shortness of breath, or cough. Denies nausea, vomiting, or constipation. States she had d iarrhea a couple of times, but this is resolved. Denies any abdominal pain. States she was having dysuria prior to admission, but this has resolved. Denies any vaginal bleeding or discharge. Denies any back or flank pain. Denies oral thrush or skin rashes. Reports chronic diffuse joint pain that is back to baseline. The patient lives at home with her . She is a retired hr administrative assistant. She denies tobacco, alcohol, or illicit drug use. She denies any recent travel. She has a dog at home. She denies any chronic infectious diseases. - ROS Review of Systems: All systems reviewed and no additional remarkable complaints except as stated. - Results CBC & Chem 7: 10/18/18 04:50 10/18/18 04:50 - Exam Vitals: Temp Pulse Resp BP Pulse Ox 98.1 F 75 18 135/71 80 10/18/18 11:21 10/18/18 11:21 10/18/18 11:21 10/18/18 11:21 10/18/18 11:50 Exam: Head: Atraumatic, normal inspection, normocephalic. Eye: EOMI, PERRLA, no scleral icterus noted. ENT: Mucous membranes moist. No odontogenic infection noted. Neck: Normal inspection, no meningismus. Respiratory: Clear to auscultation. No rales, respiratory distress, rhonchi, or wheezes noted. Cardiovascular: Regular rate and rhythm, S1 and S2 audible. No murmurs, rubs, or gallops. GI: Soft, nondistended, normal bowel sounds. Nontender. Extremities:No joint swelling, pedal edema, or tenderness noted. Back: Normal inspection. No vertebral tenderness noted. No CVA tenderness noted. Neurological: Alert, oriented 3, no focal deficits. Psychiatric: normal affect, normal mood. Skin: Dry, intact, warm. Normal color. No rashes. Cetirizine HCl [24Hour Allergy] 10 mg PO DAILY 08/26/17 [History] Montelukast [Singulair] 10 mg PO DAILY 08/26/17 [History] Candesartan/Hydrochlorothiazid [Atacand Hct 32-12.5 mg Tab] 1 tab PO DAILY 03/11/18 [History] Amlodipine Besylate 10 mg PO DAILY 10/13/18 [History] Alcohol Antiseptic Pads [Alcohol Pads] 1 each ACHS #100 med..pad 10/18/18 [Rx] Blood-Glucose Meter, Drum-Type [Accu-Chek] 1 each ACHS #1 kit 10/18/18 [Rx] Cefdinir [Omnicef] 300 mg PO BID 9 Days #18 capsule 10/18/18 [Rx] Ferrous Sulfate 325 mg PO DAILY@0800 #14 tablet 10/18/18 [Rx] Insulin DETEMIR [Levemir Flextouch] 35 unit SQ HS #1 pack 10/18/18 [Rx] Insulin LISPRO [Humalog Jadon Kwikpen] 0 unit SQ ACHS #5 ins.pen.hf 10/18/18 [Rx] Lactobacillus [Culturelle] 2 each PO DAILY 10 Days #20 cap.sprink 10/18/18 [Rx] Lancets/Blood Glucose Strips [Fora P12-[id number] Strp-Lnct] 1 each ACHS #1 combo..pkg 10/18/18 [Rx] Pen Needle, Diabetic, Safety [Assure Id Pen Needle] 1 each ACHS #100 dis.needle 10/18/18 [Rx] Vancomycin Oral Soln [Firvanq] 125 mg PO QID 8 Days #32 udc 10/18/18 [Rx] Allergy/AdvReac Type Severity Reaction Status Date / Time celecoxib [From Celebrex] Allergy Swelling Verified 10/13/18 21:17 of Lip/Tongue/Throat Penicillins Allergy Hives Verified 10/13/18 21:17 prednisone Allergy Swelling Verified 10/13/18 21:17 of Lip/Tongue/Throat duloxetine [From Cymbalta] AdvReac Severe Hallucinati Verified 10/15/18 20:30 ng - Assessment and Plan (1) Sepsis Status: Acute Severe sepsis: The patient had 3 sepsis criteria with lactic acidosis. Likely secondary to bacteremia and UTI. Improved. Bandemia resolved. Tachycardia resolved. Afebrile. Blood cultures drawn 10/13/18 were +1 out of 2 sets for 2 strains of Escherichia coli. Repeat blood cultures on 10/14/18 are no growth to date 2 sets. Qualifiers: Sepsis type: Escherichia coli Qualified Code(s): A41.51 - Sepsis due to Escherichia coli [E. coli] SNOMED Code(s): 03159121 (2) Bacteremia Status: Acute Causative organism: Escherichia coli. Source: Likely UTI. Blood cultures drawn 10/13/18 were +1 out of 2 sets for 2 strains of Escherichia coli. Repeat blood cultures on 10/14/18 are no growth to date 2 sets. Currently on IV Rocephin. SNOMED Code(s): 2181591 (3) UTI (urinary tract infection) Status: Acute Causative organism: Escherichia coli. Uncomplicated. No evidence of pyelonephritis. No landaver[place] catheter. Currently on IV Rocephin. Qualifiers: Urinary tract infection type: acute cystitis Hematuria presence: without hematuria Qualified Code(s): N30.00 - Acute cystitis without hematuria SNOMED Code(s): 52303719 (4) C. difficile diarrhea Status: Acute C. diff PCR and EIA positive. Non-severe. Diarrhea resolved. Not sure this is a true infection based on the clinical picture. Currently on PO Vancomycin. SNOMED Code(s): 2683936501805 (5) Joint pain Status: Chronic Acute worsening on chronic joint pain. Likely secondary to sepsis. Resolved. Back to baseline. Qualifiers: Joint pain location: unspecified Qualified Code(s): M25.50 - Pain in unspecified joint SNOMED Code(s): 63694176 (6) Diabetic ketoacidosis Status: Resolved Qualifiers: Diabetes mellitus type: type 2 Diabetes mellitus complication detail: without coma Qualified Code(s): E11.10 - Type 2 diabetes mellitus with ketoacidosis without coma SNOMED Code(s): 953726931, 545211022 (7) Elevated troponin I measurement Status: Acute Likely secondary to sepsis. Cardiology consulted and signed off. SNOMED Code(s): 064025999 (8) Uncontrolled diabetes mellitus Status: Acute Qualifiers: Diabetes mellitus type: type 2 Glycemic state: with hyperglycemia Qualified Code(s): E11.65 - Type 2 diabetes mellitus with hyperglycemia SNOMED Code(s): 88272261, 001210393 (9) Hypokalemia Status: Resolved SNOMED Code(s): 29759795 (10) Hyponatremia Status: Resolved SNOMED Code(s): 55216349 (11) Obesity Status: Chronic Qualifiers: Obesity type: due to excess calories Obesity classification: adult class 1 (BMI 30 - 34.9) Serious obesity comorbidity presence: without serious comorbidity Body mass index: BMI 34.0-34.9 Qualified Code(s): E66.09 - Other obesity due to excess calories; Z68.34 - Body mass index (BMI) 34.0-34.9, adult SNOMED Code(s): 550694764, 791814031 (12) HTN (hypertension) Status: Chronic Qualifiers: Hypertension type: essential hypertension Qualified Code(s): I10 - Es sential (primary) hypertension SNOMED Code(s): 34943324 (13) HLD (hyperlipidemia) Status: Chronic Qualifiers: Hyperlipidemia type: mixed hyperlipidemia Qualified Code(s): E78.2 - Mixed hyperlipidemia SNOMED Code(s): 90519647 - Recommendations Recommendations: Await repeat blood cultures to finalize. Continue Rocephin, but increase to 2 g IV daily. Continue vancomycin by mouth 125 mg 4 times a day. Duration of treatment depends on the clinical picture. Can likely transition IV Rocephin to oral Omnicef 300 mg by mouth twice a day when ready for discharge. Recommend treating through high. Monitor renal function and dose adjust antibiotics. C. difficile precautions per the hospital policy. Past Med Surg Social Fam HX - Past Medical History Medical history: cancer, diabetes, thyroid disease Additional medical history: allergic rhinitis, uterine CA, hypothyroidism Psychiatric history: no psych history - Past Surgical History Surgical History: hysterectomy, orthopedic, other Additional surgical history: thumb. shoulder. CTR. right total shoulder replacement. left hip replacement - Social History Smoking Status: Never smoker Smokeless Tobacco Status: No Alcohol use: none Drug use: none Consult Discharge Plan - Plan Instructions: Iron Supplements (By mouth), Vancomycin (By mouth), Cefdinir (By mouth), Insulin Detemir (Injection), Insulin Lispro (Injection), Urinary Tract Infection in Women (DC), How to Check Your Blood Sugar (DC), Diabetic Ketoacidosis (DC), Diabetic Foot Care (DC), Diabetic Hypoglycemia (DC), Diabetes Mellitus Type 2 in Adults (DC), Meal Planning with Diabetes Exchanges (DC), Sepsis (DC) Referrals: Lauren Clark MD [Partnered Physician] - Lesley Matos MD [Non-Partnered Physician] - Ghulam Hernandez DO [Primary Care Provider] - 10/20/18 1:00 pm Dave Ogden MD [Partnered Physician] - Prescriptions: Blood-Glucose Meter, Drum-Type [Accu-Chek] 1 each ACHS #1 kit Alcohol Antiseptic Pads [Alcohol Pads] 1 each ACHS #100 med..pad Pen Needle, Diabetic, Safety [Assure Id Pen Needle] 1 each ACHS #100 dis.needle Lactobacillus [Culturelle] 2 each PO DAILY 10 Days #20 cap.sprink Ferrous Sulfate 325 mg PO DAILY@0800 #14 tablet Vancomycin Oral Soln [Firvanq] 125 mg PO QID 8 Days #32 udc Lancets/Blood Glucose Strips [Fora V97-[id number] Strp-Lnct] 1 each ACHS #1 combo..pkg Insulin LISPRO [Humalog Jadon Kwikpen] 0 unit SQ ACHS #5 ins.pen.hf Insulin DETEMIR [Levemir Flextouch] 35 unit SQ HS #1 pack Cefdinir [Omnicef] 300 mg PO BID 9 Days #18 capsule - Attending Attestation I have personally performed a face to face evaluation on this patient. I have reviewed and agree with the care plan. History and Exam by me shows: Assessment and plan: 1.Sepsis 2.Escherichia coli bacteremia like source urinary tract infection 3.C. difficile diarrhea currently patient is asymptomatic 4.Diabetes mellitus type 2 5.Electrolyte imbalance Recommendations: Await repeat blood cultures to finalize. Continue Rocephin, but increase to 2 g IV daily. Continue vancomycin by mouth 125 mg 4 times a day. Duration of treatment depends on the clinical picture. Can likely transition IV Rocephin to oral Omnicef 300 mg by mouth twice a day when ready for discharge. Recommend treating through high. Monitor renal function and dose adjust antibiotics. C. difficile precautions per the hospital policy.
--- NOTE | 2018-10-18 17:38 | Discharge Summary ---
- NOTES TO OUTPATIENT PROVIDER Notes to Outpatient Provider: follow up with PCP, outpatient cardiology follow up. repeat CBC and CMP in 3days. GI fllow up for EGD and colonoscopy Orders not resulted at time of discharge: Pending orders 10/14/18 04:53 Culture,Blood [BC] AM 0400 Date of Encounter: 10/18/18 Time of Encounter: 17:36 - Discharge Diagnosis (1) Sepsis Priority: Primary Status: Acute Qualifiers: Sepsis type: Escherichia coli Qualified Code(s): A41.51 - Sepsis due to Escherichia coli [E. coli] (2) Uncontrolled diabetes mellitus Priority: Secondary Status: Acute Qualifiers: Diabetes mellitus type: type 2 Glycemic state: with hyperglycemia Qualified Code(s): E11.65 - Type 2 diabetes mellitus with hyperglycemia (3) UTI (urinary tract infection) Priority: Secondary Status: Acute Qualifiers: Urinary tract infection type: acute cystitis Hematuria presence: without hematuria Qualified Code(s): N30.00 - Acute cystitis without hematuria (4) Hypokalemia Priority: Secondary Status: Resolved (5) Hyponatremia Priority: Secondary Status: Resolved (6) Hypophosphatemia Priority: Secondary Status: Acute (7) C. difficile diarrhea Priority: Secondary Status: Acute (8) DVT prophylaxis Priority: Secondary Status: Acute (9) Diabetic ketoacidosis Priority: Secondary Status: Resolved Qualifiers: Diabetes mellitus type: type 2 Diabetes mellitus complication detail: without coma Qualified Code(s): E11.10 - Type 2 diabetes mellitus with ketoacidosis without coma (10) Elevated troponin I measurement Priority: Secondary Status: Acute (11) HLD (hyperlipidemia) Priority: Secondary Status: Chronic Qualifiers: Hyperlipidemia type: mixed hyperlipidemia Qualified Code(s): E78.2 - Mixed hyperlipidemia (12) HTN (hypertension) Priority: Secondary Status: Chronic Qualifiers: Hypertension type: essential hypertension Qualified Code(s): I10 - Essential (primary) hypertension (13) Obesity Priority: Secondary Status: Chronic Qualifiers: Obesity type: due to excess calories Obesity classification: adult class 1 (BMI 30 - 34.9) Serious obesity comorbidity presence: without serious comorbidity Body mass index: BMI 34.0-34.9 Qualified Code(s): E66.09 - Other obesity due to excess calories; Z68.34 - Body mass index (BMI) 34.0-34.9, adult Hospital course: Patient is a 63y/o female with PMH of DM type II, hypertension, hyperlipidemia, hypothyroidism, obesity who is admitted for DKA. patient was admitted on 10/13 and my first encounter with the patient was on 10/18 Assessment/Plan Sepsis with ecoli bacteremia secondary to ecoli UTI Sepsis resolved clinically improving 1/2 bottle of blood culture reporting E.coli urine culture positive for Ecoli repeat Blood cultures negative thus far Afebrile since 10/15 was treated with 5 day of IV abx and was transitioned to oral as per ID recommendations ( omnicef ) to complete a 14 day course - was cleared by ID for discharge Uncontrolled Diabetes Mellitus Diabetic ketoacidosis likely secondary to underlying infection HbA1C on 10/05/18: 16.3 was started on levemir 35 units QHS and sliding scale to adust as per finger sticks. to keep glucose log and take to PCP for further adjustment. ADA diet was counseled Diabetic teaching performed by nursing staff nursing staff aware to obtain appointment with evp general counsel Cdif positive continue with oral vancomycin QID to complete a 10 course for 8 more days. will need Op colonoscopy - to follow up with Gi as Op ID recs appreciated Acute normocytic anemia iron panel, B12 and folate noted- started on iron supplementation. occult blood negative, will need OP colonoscopy once Cdif has resolved. nursing staff aware to obtain appointment Lactic acidosis/HAGMA secondary to sepsis and uncontrolled glucose/DKA resolved Elevated TNI likely demand ischemia in the setting of DKA/bacteremia/Acute respiratory distress with hypoxia no chest pain reported at this time cardiology input appreciated TTE as below no Antiplatelets recommended or further cardiac work up outpatient cardiology follow up recommended and nursing staff aware to provide appointment as per ardiology "Mild troponin elevation in the setting of multiple metabolic issues. No dynamic ST-T wave changes on ECG. TTE demonstrates normal LV function, no segmental wall motion abnormalities. Presentation is not consistent with ACS. No further cardiac testing appears to be necessary at this time." Electrolyte abnormality hypokalemia resolved, hypophosphatemia resolved Acute respiratory distress with hypoxia likely secondary to volume overload given the fluid resuscitation required for treatment of DKA CTA chest negative for PE resolved saturating well on room air at this time will closely monitor HTN continue home medications closely monitor BP - take log to PCP for further adjust ment of BP medications. she was evaluated by PT adn ecs appreciated- CM and SW on board she was set up with [employer] [facility] she was told to wait fo rBcx tp finalize however she insisted on being discharged as she was cleared by consultants. she understands that if she develops fever or chills she is to come back to [facility] ED she understands that she will need to be compliant with her Abx and insulin regimen ad will need close follow with cardiology, GI, endocrinology, and PCP CTA chest No acute pulmonary embolus. No acute abnormality in the chest. : 2.0 mm solid pulmonary nodule within the upper lobe. If patient is low risk for malignancy, no routine follow-up imaging is recommended; if patient is high risk for malignancy, a non-contrast Chest CT at 12 months is optional. If performed and the nodule is stable at 12 months, no further follow-up is recommended. TTE: Impressions: LVEF 60-65%. Mild left ventricular diastolic dysfunction. Mild right ventricular dilatation with normal function. Mild mitral regurgitation. Mild tricuspid regurgitation. No pulmonary hypertension. Care plan discussed with patient/Family/lead former discussed with: patient, family, nurse, social work, case management, behavioral consultant - Time Spent with Patient Total time spent providing and/or coordinating discharge services: Time spent: Greater than 30 minutes (45) - Discharge Medications Prescriptions: New Vancomycin Oral Soln [Firvanq] 125 mg PO QID 8 Days #32 udc Blood-Glucose Meter, Drum-Type [Accu-Chek] 1 each ACHS #1 kit Alcohol Antiseptic Pads [Alcohol Pads] 1 each TP ACHS #100 med..pad Pen Needle, Diabetic, Safety [Assure Id Pen Needle] 1 each ACHS #100 dis.needle Lactobacillus [Culturelle] 2 each PO DAILY 10 Days #20 cap.sprink Ferrous Sulfate 325 mg PO DAILY@0800 #14 tablet Lancets/Blood Glucose Strips [Fora [id number] Strp-Lnct] 1 each ACHS #1 combo..pkg Insulin LISPRO [Humalog Jadon Kwikpen] 0 unit SQ ACHS #5 ins.pen.hf Insulin DETEMIR [Levemir Flextouch] 35 unit SQ HS #1 pack Cefdinir [Omnicef] 300 mg PO BID 9 Days #18 capsule Continued Montelukast [Singulair] 10 mg PO DAILY Cetirizine HCl [24Hour Allergy] 10 mg PO DAILY Candesartan/Hydrochlorothiazid [Atacand Hct 32-12.5 mg Tab] 1 tab PO DAILY Amlodipine Besylate 10 mg PO DAILY Discontinued Metformin HCl [Glumetza] 2,000 mg PO DAILY Home Medications: Cetirizine HCl [24Hour Allergy] 10 mg PO DAILY 08/26/17 [History] Montelukast [Singulair] 10 mg PO DAILY 08/26/17 [History] Candesartan/Hydrochlorothiazid [Atacand Hct 32-12.5 mg Tab] 1 tab PO DAILY 03/11/18 [History] Amlodipine Besylate 10 mg PO DAILY 10/13/18 [History] Alcohol Antiseptic Pads [Alcohol Pads] 1 each ACHS #100 med..pad 10/18/18 [Rx] Blood-Glucose Meter, Drum-Type [Accu-Chek] 1 each ACHS #1 kit 10/18/18 [Rx] Cefdinir [Omnicef] 300 mg PO BID 9 Days #18 capsule 10/18/18 [Rx] Ferrous Sulfate 325 mg PO DAILY@0800 #14 tablet 10/18/18 [Rx] Insulin DETEMIR [Levemir Flextouch] 35 unit SQ HS #1 pack 10/18/18 [Rx] Insulin LISPRO [Humalog Jadon Kwikpen] 0 unit SQ ACHS #5 ins.pen.hf 10/18/18 [Rx] Lactobacillus [Culturelle] 2 each PO DAILY 10 Days #20 cap.sprink 10/18/18 [Rx] Lancets/Blood Glucose Strips [Fora [id number] Strp-Lnct] 1 each ACHS #1 combo..pkg 10/18/18 [Rx] Pen Needle, Diabetic, Safety [Assure Id Pen Needle] 1 each ACHS #100 dis.needle 10/18/18 [Rx] Vancomycin Oral Soln [Firvanq] 125 mg PO QID 8 Days #32 udc 10/18/18 [Rx] Allergies/Adverse Reactions: Allergy/AdvReac Type Severity Reaction Status Date / Time celecoxib [From Celebrex] Allergy Swelling Verified 10/13/18 21:17 of Lip/Tongue/Throat Penicillins Allergy Hives Verified 10/13/18 21:17 prednisone Allergy Swelling Verified 10/13/18 21:17 of Lip/Tongue/Throat duloxetine [From Cymbalta] AdvReac Severe Hallucinati Verified 10/15/18 20:30 ng Date of admission: 10/14/18 09:27 Primary care physician: Ghulam Hernandez DO Consults: 10/14/18 09:59 Consult to Cardiology [CONS] Routine Comment: Consulting Provider: [facility] [place] Reason for Consult: elevated troponin Call Completed: Yes 10/14/18 11:27 Consult to Diabetes Education [CONS] Routine Comment: Reason for Consult: newly diagnosed with DM 10/16/18 08:12 Consult to Physical Therapy [CONS] Stat Comment: Evaluate, develop and implement POC Reason for Consult: evaluation for discharge disposition Does patient have active BEDREST order?: No Is patient medically & hemodynamically stable?: Yes Patient assessed for mobility or mobilized this visit?: Yes 10/18/18 09:09 Consult to Infectious Diseases [CONS] Routine Consulting Provider: [facility] [place] Reason for Consult: c dif and gram negative bacteremia Call Completed: No - Constitutional Vitals: Temp Pulse Resp BP Pulse Ox 98.2 F 80 16 136/78 100 10/18/18 16:18 10/18/18 16:18 10/18/18 16:18 10/18/18 16:18 10/18/18 16:18 General appearance: Present: A&O X 3, pleasant, no acute distress, answers questions appropriately Exam: General: AAO x 3,no acute distress, morbidly obese HEENT: EOMI, NC/AT, no scleral icterus Respiratory: No rales, equal air entry bilaterally, no wheezing Cardiovascular: Sinus rhythm, normal rate, no murmurs GI: Soft, Non tender, non distended, normal bowel sounds Ext: No edema, no tenderness, positive pulses Neuro: AAO x 3, no focal deficits Rest of the clinical exam is noncontributory - Patient Status Disposition: Home Health Service Condition: Fair Functional capacity at discharge: independent ambulation Overall status at discharge: patient is progressing back to baseline - Discharge Instructions Follow Up With: Ghulam Hernandez DO [Primary Care Provider] - 10/20/18 1:00 pm Lauren Clark MD [Partnered Physician] - Dave Ogden MD [Partnered Physician] - Lesley Matos MD [Non-Partnered Physician] - - Diet and Activity Activity: as per physical therapy, increase activity as tolerated Diet: diabetic diet, low salt diet
--- NOTE | 2018-10-18 18:53 | Physician Discharge Referral ---
Home Health/Hosp Referral Info Transfer to: Home Health Provider in Charge Post Discharge: PCP - Diagnosis (1) Sepsis Status: Acute (2) Uncontrolled diabetes mellitus Status: Acute (3) UTI (urinary tract infection) Status: Acute (4) Hypokalemia Status: Resolved (5) Hyponatremia Status: Resolved (6) Hypophosphatemia Status: Acute (7) C. difficile diarrhea Status: Acute (8) DVT prophylaxis Status: Acute (9) Diabetic ketoacidosis Status: Resolved (10) Elevated troponin I measurement Status: Acute (11) HLD (hyperlipidemia) Status: Chronic (12) HTN (hypertension) Status: Chronic (13) Obesity Status: Chronic - Respiratory Orders Smoking Cessation: Smoking cessation has been advised. For more information, call the [place] Tobacco Quit Line at 2-380-RBUUNOW. - Services Needed Following services are medically necessary services: Nursing, Home Health Aide, Physical Therapy - Transfer Medications Prescriptions: Blood-Glucose Meter, Drum-Type [Accu-Chek] 1 each ACHS #1 kit Alcohol Antiseptic Pads [Alcohol Pads] 1 each ACHS #100 med..pad Pen Needle, Diabetic, Safety [Assure Id Pen Needle] 1 each ACHS #100 dis.needle Lactobacillus [Culturelle] 2 each PO DAILY 10 Days #20 cap.sprink Ferrous Sulfate 325 mg PO DAILY@0800 #14 tablet Vancomycin Oral Soln [Firvanq] 125 mg PO QID 8 Days #32 udc Lancets/Blood Glucose Strips [Fora [id number] Strp-Lnct] 1 each [facility] #1 combo..pkg Insulin LISPRO [Humalog Jadon Kwikpen] 0 unit SQ ACHS #5 ins.pen.hf Insulin DETEMIR [Levemir Flextouch] 35 unit SQ HS #1 pack Cefdinir [Omnicef] 300 mg PO BID 9 Days #18 capsule Home Medications: Cetirizine HCl [24Hour Allergy] 10 mg PO DAILY 08/26/17 [History] Montelukast [Singulair] 10 mg PO DAILY 08/26/17 [History] Candesartan/Hydrochlorothiazid [Atacand Hct 32-12.5 mg Tab] 1 tab PO DAILY 03/11/18 [History] Amlodipine Besylate 10 mg PO DAILY 10/13/18 [History] Alcohol Antiseptic Pads [Alcohol Pads] 1 each ACHS #100 med..pad 10/18/18 [Rx] Blood-Glucose Meter, Drum-Type [Accu-Chek] 1 each [facility] #1 kit 10/18/18 [Rx] Cefdinir [Omnicef] 300 mg PO BID 9 Days #18 capsule 10/18/18 [Rx] Ferrous Sulfate 325 mg PO DAILY@0800 #14 tablet 10/18/18 [Rx] Insulin DETEMIR [Levemir Flextouch] 35 unit SQ HS #1 pack 10/18/18 [Rx] Insulin LISPRO [Humalog Jadon Kwikpen] 0 unit SQ [facility]CHS #5 ins.pen.hf 10/18/18 [Rx] Lactobacillus [Culturelle] 2 each PO DAILY 10 Days #20 cap.sprink 10/18/18 [Rx] Lancets/Blood Glucose Strips [Fora [id number] Strp-Lnct] 1 each [facility] #1 combo..pkg 10/18/18 [Rx] Pen Needle, Diabetic, Safety [Assure Id Pen Needle] 1 each ACHS #100 dis.needle 10/18/18 [Rx] Vancomycin Oral Soln [Firvanq] 125 mg PO QID 8 Days #32 udc 10/18/18 [Rx] Allergies/Adverse Reactions: Allergy/AdvReac Type Severity Reaction Status Date / Time celecoxib [From Celebrex] Allergy Swelling Verified 10/13/18 21:17 of Lip/Tongue/Throat Penicillins Allergy Hives Verified 10/13/18 21:17 prednisone Allergy Swelling Verified 10/13/18 21:17 of Lip/Tongue/Throat duloxetine [From Cymbalta] AdvReac Severe Hallucinati Verified 10/15/18 20:30 ng Certification: Further, I certify that my clinical findings support that this patient is homebound (i.e. absences from home require considerable and taxing effort and are for medical reasons or latter day services or infrequently or short duration when for other reasons) because: Homebound Reason: Patient requires assistance of a person or device to safely leave home Attestation: My signature below is to certify that this patient is under my care and that I, or nurse practitioner, or a physician's administrative assistant office manager working with me, has a [id number] encounter with this patient.
[2018-10-18 19:41] VITALS: BP 153/91
[2018-10-19] MEDS ORDERED: Lactobacillus 1 EACH CAP.SPRINK PO SCH (09:00)
== END 2018-10-18 20:46 | disposition home health service (06) | DRG 871 ==
LOC: 2NNU 05:15 → EMEROOARM 05:15 → 2NNU 09:35 → SUATTDRO 10-14 09:27 → 2NNU 10-16 23:35
PROVIDERS: ADMIT Internal Medicine Nephrology; ATTEND Internal Medicine